=== PATIENT | male | born 1965 | race Caucasian/White ===

== ENCOUNTER → 2017-08-22 16:53 | Outpatient (CLI) | payer OTHER | END | disposition home or self-care (01) | LOC: D.MRI 16:53 | DX: M23.8X2 Other internal derangements of left knee (principal) ==

== ENCOUNTER → 2017-09-08 17:21 | Outpatient (CLI) | payer OTHER | END | disposition home or self-care (01) | LOC: D.MRI 17:21 | DX: M54.5 Low back pain (principal) ==

== ENCOUNTER 2019-05-15 11:12 | Inpatient (IN) | payer OTHER ==
[~2019-05-15] VITALS: Ht 180.3 cm; Wt 121.8 kg
--- NOTE | ~2019-05-15 | HEMODYNAMI ---
PATIENT:TORY CLANCY MEDICAL RECORD: [id number] : 61 LOCATION:[facility] [id number] ADMISSION DATE: 05/15/19 Generatedon:05/16/201910:28 Patient name: TORY CLANCY Patient #: [id number] SSN: DO B: 1965 Date of study: 05/16/2019 Page: Of Hemodynamic Procedure Report Patient Data Patient Demographics Procedure consent was obtained First Name: TORY Gender: Male Last Name: JULIETH : 1965 Middle Initial: HEATHER Age: 54 year(s) Patient #: [id number] Race: Unknown Additional ID: [id number] Contact details [address]: [address] [place] [address] State: [place] City: [place] Zip code: [address] Past Medical History Allergies Allergen Reaction Date Comments Reported Penicillins 05/16/2019 Admission Admission Data Admission Date: 05/15/2019 Admission Time: 13:46 Admit Source: Other Insurance Payor: Private Room #: D.[id number] health insurance Height (in.): 70.47 BSA: 2.4 (m2) Height (cm.): 179 BMI: 39.01 (kg/m2) Weight (lbs.): 275.58 Weight (kg.): 125 Current Diagnosis Diagnosis Description Unstable angina Lab Results Lab Result Date: 05/16/2019 Lab Result Time: 0:00 Biochemistry Name Units Result Min Max Creatinine mg/dl 1.1 --(--*-)-- 0.6 1.3 eGFR ml/min 73.03579 *-(----)-- 90 120 NONAFRICAN CBC Name Units Result Min Max Hematocrit % 53 --(---*)-- 42 54 Hemoglobin g/dl 17.1 --(---*)-- 13.5 17.5 Procedure Procedure Types Cath Procedure Diagnostic Procedure LHC LH w/Coronaries Sedation Charges Moderate Sedation up to 15 minutes Procedure Description Procedure Date Procedure Date: 05/16/2019 Procedure Start Time: 10:07 Procedure End Time: 10:26 Procedure Staff Name Function Garfield Willoughby MD Performing Physician Lena Hernandez RT Monitor Lise Holm RT Scrub Tyler Sellers RN Nurse Procedure Data Cath Procedure Fluoroscopy Diagnostic fluoroscopy Total fluoroscopy Time: 4.7 time: 4.7 min min Diagnostic fluoroscopy Total fluoroscopy dose: dose: 1478 mGy 1478 mGy Contrast Material Contrast Material Type Amount (ml) Isovue 300 91 Entry Location Entry Primary Successful Side Size Upsize Upsize Entry Closure Kaufman ccessful Closure Location (Fr) 1 (Fr) 2 (Fr) Remarks Device Remarks Radial Right 6 Fr Mechanical artery Short Compression Estimated blood loss: 10 ml Diagnostic catheters Device Type Used For End Catheter Placement DIAGNOSTIC Nando 110cm Procedure 5Fr catheter (007024) DIAGNOSTIC [place] 110cm 5 Procedure Fr catheter (649186) Procedure Complications No complications Procedure Medications Medication Administration Route Dosage Oxygen etCO2 Nasal cannula 4 l/min Lidocaine 2% added to field 20 Heparin Flush Bag added to field 2 bags (1000units/500ml NS) 0.9% NaCl I.V. 100 ml/hr Radial Cocktail I.A. 1 syringe (Verapamil 2mg/Nitro 400mcg/Heparin 1500units) Versed I.V. 1 mg Fentanyl I.V. 50 mcg Versed I.V. 1 mg Fentanyl I.V. 50 mcg Oxygen 8 l/min Hemodynamics Rest BSA: 2.4 (m2) HGB: 17.1 (g/dl) O2 Consumption: Estimated: 292.63 (ml/min) O2 Con sumption indexed: Estimated:121.93 (ml/min/m) Heart Rate: 80 (bpm) Pressure Samples Time Site Value (mmHg) Purpose Heart Use Rate(bpm) 10:09 LV 149/0,22 Snapshot 65 10:10 AO 136/80(93) Pullback 81 10:10 LV 146/3,18 Pullback 81 Gradients Valve Time Site 1 Site 2 Mean SEP/DFP Peak To Heart Use (mmHg) (sec/min) Peak Rate (mmHg) (bpm) Aortic 10:10 LV AO 12 6 10 81 146/3,18 136/80(93) Calculations Valve P-P Mean Valve Index Valve Source Name Gradient Area Flow (cm2) Aortic 10 12 10 12 Snapshots Pre Cath Intra NCS Post Cath Vital Signs Time Heart Resp SPO2 etCO2 NIBP (mmHg) Rhythm Pain Sedation Rate (ipm) (%) (mmHg) Status Level (bpm) 9:50:44 77 22 89 39.6 152/85(104) NSR 0 (11) 10(A) , No pain 9:55:06 83 25 90 39.5 144/87(121) NSR 0 (11) 10(A) , No pain 9:59:32 76 19 87 44 142/85(106) NSR 0 (11) 10(A) , No pain 10:03:55 71 18 93 47 144/88(117) NSR 0 (11) 10(A) , No pain 10:08:19 76 16 93 44.8 142/81(99) NSR 0 (11) 10(A) , No pain 10:12:29 75 13 93 17.1 115/72(97) NSR 0 (11) 10(A) , No pain 10:17:36 89 16 95 52.2 124/86(102) NSR 0 (11) 10(A) , No pain 10:21:54 90 19 92 45.5 135/76(101) NSR 0 (11) 10(A) , No pain 10:26:18 84 17 95 47.7 126/76(101) NSR 0 (11) 10(A) , No pain Medications Time Medication Route Dose Verified Delivered Reason Notes Effectiveness by by 9:49:35 Oxygen etCO2 4 l/min Garfield Buffie used for Nasal Case Sellers RN procedure cannula 9:49:41 Lidocaine 2% added 20ml Garfield Garfield for local to vial Case Willoughby MD anesthetic field 9:49:47 Heparin Flush added 2 bags Garfield Garfield used for Bag to Case Willoughby MD procedure (1000units/500ml field NS) 9:49:56 0.9% NaCl I.V. 100 Garfield Buffie Per ml/hr Case Sellers RN physician 9:59:52 Oxygen simple 8 l/min Garfield Buffie used for mask Case Sellers RN procedure 10:07:09 Versed I.V. 1 mg Garfield Buffie for sedation Case Sellers RN 10:07:15 Fentanyl I.V. 50 mcg Garfield Buffie for sedation Case Sellers RN 10:08:32 Radial Cocktail I.A. 1 Garfield Garfield for (Verapamil syringe Case Willoughby MD vasodilation 2mg/Nitro 400mcg/Heparin 1500units) 10:11:13 Versed I.V. 1 mg Garfield Vitoie for sedation Case Sellers RN 10:11:18 Fentanyl I.V. 50 mcg Garfield Scott for sedation Case Sellers lead manufacturing engineer Log Time Note 9:30:30 Tyler Sellers RN sent for patient. Start room use. 9:40:21 Informed consent obtained and on chart 9:42:16 Patient allergic to Penicillins 9:42:20 Admit Source: Other 9:42:29 Insurance Payor : Private health insurance 9:42:37 Patient Weight : 275.58 lbs 9:42:42 Patient Height : 70.47 inches 9:42:51 Current Diagnosis : Unstable angina 9:43:31 Lab Result : eGFR NONAFRICAN 73.55266 ml/min 9:43:31 Lab Result : Creatinine 1.1 mg/dl 9:43:31 Lab Result : Hematocrit 53 % 9:43:31 Lab Result : Hemoglobin 17.1 g/dl 9:44:23 ACC Patient presents with Unstable Angina CCS Anginal Class 3--Marked limitation of physical activity, angina occurs with ordinary activity.. 9:44:26 Procedure Status Urgent Heart Cath (IP). 9:44:44 Time tracking: Regular hours (M-F 7:00 - 5:00) 9:44:48 Plan of Care:Hemodynamics will remain stable., Cardiac rhythm will remain stable., Comfort level will be maintained., Respiratory function will remain adequate., Patient/ family verbilizes understanding of procedure., Procedure tolerated without complication., Recovers from procedure without complications.. 9:44:54 Patient received from Med II to CCL 2 Alert and oriented. Tansferred to table in Supine position. 9:45:01 Warm blankets applied, and el hugger turned on for patient comfort. 9:45:01 Correct patient and procedure confirmed by team. 9:45:01 ECG and BP/O2 sat monitors applied to patient. 9:45:49 Full Disclosure recording started 9:45:52 H&P Date Dictated: 05/16/2019 Within 30 days and on chart.. 9:45:54 Pre-procedure instructions explained to patient. 9:45:54 Pre-op teaching completed and patient verbalized understanding. 9:45:57 Family in patients room. 9:46:03 Patient NPO since Midnight. 9:46:05 Is the patient allergic to Iodine/contrast media? No. 9:46:07 Was the patient premedicated? N/A 9:46:12 Is patient on blood thinner?No 9:46:16 ACC The patient was administered the following blood thiners within the last 24 hours: None 9:46:18 If diabetic: On Metformin? Yes 9:46:23 Patient diabetic? Yes. 9:46:39 If on Metformin: Last Dose? 05/15/2019 9:46:54 Previous problem with sedation/anesthesia? No ? 9:47:00 Snore? Yes 9:47:02 Sleep apnea? No 9:47:03 Deviated septum? No 9:47:04 Opens mouth fully? Yes 9:47:06 Sticks out tongue? Yes 9:47:12 Airway obstruction? Yes bronchitis 9:47:27 Dentures? No ? 9:47:36 Pre procedure: right radial pulse 2+ Normal; easily identifiable; not easily obliterated 9:47:39 Pre procedure: right dorsailis pedis pulse 1+ Palpable, but thready & weak; easily obliterated 9:47:42 Modified Jae's test Radial < 7 seconds 9:47:44 Patient pain scale 0/10 ?. 9:47:57 IV patent on arrival in left wrist with 0.9% NaCl at KVO. 9:48:04 Stress Test: no; N/A ? 9:48:08 Right Radial & Right Groin area was prepped with chlora-prep and draped in sterile fashion 9:48:10 Alarms reviewed by R. N. 9:48:10 Sharps counted by scrub and verified by R.N. 9:49:22 Vital chart was started 9:49:26 Risk of Mortality: 0.1 9:49:27 Risk of blood transfusion: 0.1 9:49:31 Risk of STACY: 0.1 9:49:35 Oxygen 4 l/min etCO2 Nasal cannula was administered by Tyler Sellers RN; used for procedure; Verbal order read back and verified. 9:49:41 Lidocaine 2% 20ml vial added to field was administered by Garfield Willoughby MD; for local anesthetic; Verbal order read back and verified. 9:49:47 Heparin Flush Bag (1000units/500ml NS) 2 bags added to field was administered by Garfield Willoughby MD; used for procedure; Verbal order read back and verified. 9:49:56 0.9% NaCl 100 ml/hr I.V. was administered by Tyler Sellers RN; Per physician; Verbal order read back and verified. 9:49:58 Pt. transported to wharf labourer with sob, states bronchitis x 4 weeks with cough. Pt with room oxygen saturation of 87%. 9:52:08 Baseline sample Acquired. 9:53:25 Physician paged 9:59:52 Oxygen 8 l/min simple mask was administered by Tyler Sellers RN; used for procedure; Verbal order read back and verified. 10:06:31 Physician arrived 10:06:31 --------ALL STOP TIME OUT------ 10:06:32 Final Timeout: patient, procedure, and site verified with staff and physician. All members of the team are in agreement. 10:06:37 Right Radial & Right Groin site verified by team. 10:06:41 Fire Safety Assessment: A--An alcohol-based skin anteseptic being used preoperatively., C--Open oxygen or nitrous oxide is being used., D--An ESU, laser, or fiber-optic light is being used. 10:06:45 Physical assessment completed. ASA score P 3 - A patient with severe systemic disease as per Garfield Willoughby MD. 10:06:49 2) 60-89 Mildly reduced kidney function, and other findings (as for stage 1) point to kidney disease. 10:06:53 Maximum allowable contrast dose (3.7 X eGFR X 0.75)203 ml. 10:06:57 Sedation plan: IV Moderate Sedation Medication:Versed, Fentanyl 10:07:06 Use device set Radial Dx or PCI 10:07:08 Procedure started. 10:07:09 Versed 1 mg I.V. was administered by Tyler Sellers RN; for sedation; Verbal order read back and verified. 10:07:15 Fentanyl 50 mcg I.V. was administered by Tyler Sellers RN; for sedation; Verbal order read back and verified. 10:07:45 Local anesthetic to right radial artery with Lidocaine 2% by Garfield Willoughby MD.INITIAL ACCESS ONLY 10:07:55 A 6 Fr Short sheath was inserted into the Right Radial artery 10:08:02 ACIST Syringe (55579) opened to sterile field. 10:08:03 Medline Cath Pack ([id number]) opened to sterile field. 10:08:03 Bag Decanter (2002S) opened to sterile field. 10:08:04 ACIST Hand Control (19105) opened to sterile field. 10:08:04 ACIST Manifold (47816) opened to sterile field. 10:08:08 MBrace Wrist Support ([id number]) opened to sterile field. 10:08:10 NEEDLE Cook 21G 4cm Radial (G86400) opened to sterile field. 10:08:14 SHEATH 6FR RAIN (7704302) opened to sterile field. 10:08:17 EMERALD Guide Wire (652-875) opened to sterile field. 10:08:32 Radial Cocktail (Verapamil 2mg/Nitro 400mcg/Heparin 1500units) 1 syringe I.A. was administered by Garfield Willoughby MD; for vasodilation; Verbal order read back and verified. 10:08:32 A DIAGNOSTIC Nando 110cm 5Fr catheter (314521) was advanced over the wire and used for Procedure. 10:08:38 J wire advanced. 10:09:24 LV angiography performed. 10:09:55 LV gram done using NGUYỄN 10:10:12 EF : 45 % 10:11:13 Versed 1 mg I.V. was administered by Tyler Sellers RN; for sedation; Verbal order read back and verified. 10:11:18 Fentanyl 50 mcg I.V. was administered by Tyler Sellers RN; for sedation; Verbal order read back and verified. 10:12:02 RCA angiography performed. 10:12:40 LCA angiography performed. 10:17:18 Catheter exchanged over wire. 10:17:26 A DIAGNOSTIC [place] 110cm 5 Fr catheter (645065) was advanced over the wire and used for Procedure. 10:23:16 LCA angiography performed. 10:23:18 Catheter removed. 10:23:38 ZEPHYR REGULAR TR BAND (091414) opened to sterile field. 10:24:09 Sheath removed intact; hemostasis achieved with Mechanical Compression to the Right Radial artery. 10:24:12 Procedure ended.(Physican Out) 10:24:24 Fluoroscopy time 04.70 minutes. 10:24:29 Fluoroscopy dose: 1478 mGy 10:24:29 Flurop Dose total: 1478 10:24:34 Dose Area Product 90582 mGy/cm. 10:24:42 Contrast amount:Isovue 300 91ml. 10:24:45 Maximum allowable dose exceeded? No. 10:24:46 Sharps counted by scrub and verified by R.N. 10:24:49 Polaris band inflated with 10cc of air. 10:24:50 Insertion/operative site no bleeding no hematoma. 10:24:52 Post Procedure Pulses reassessed and unchanged 10:24:59 Post-procedure physical assessment completed. ASA score P 3 - A patient with severe systemic disease as per Garfield Willoughby MD. 10:25:02 Post procedure rhythm: unchanged. 10:25:05 Estimated blood loss: 10 ml 10:25:07 Post procedure instruction explained to patient.Patient verbalizes understanding. 10:25:47 Procedure type changed to Cath procedure, Diagnostic procedure, LHC, [facility] w/Coronaries, Sedation Charges, Moderate Sedation up to 15 minutes 10:25:48 Procedure and supply charges have been captured, reviewed, submitted and are correct. 10:26:06 Procedure Complication : No complications 10:26:08 Vital chart was stopped 10:26:12 [facility] Findings: MVD- MD will discuss options w/ pt 10:26:15 Operative report dictated upon procedure completion. 10:26:16 See physician's report for complete and final results. 10:26:25 Report given to [facility]. 10:26:28 Patient transfered to [facility] with Bed. 10:26:30 Procedure ended. 10:26:30 Full Disclosure recording stopped 10:26:36 End room use (Document Last) 10:26:56 End room use (Document Last) 10:27:18 End room use (Document Last) 10:27:52 End room use (Document Last) Device Usage Item Name Manufacture Quantity Catalog Hospital Part Current Minima l Lot# / Number Charge Number Stock Stock Serial# Code ACIST Acist 1 43042 995412 669251 639144 20 Syringe Network (26015) [employer]are Inc Medline Medline 1 [id number] 396379 35559 334792 5 Cath Pack ([id number]) Bag Microtek 1 439211 54573 855164 5 Decanter Medical Inc. (2002S) ACIST Hand Acist 1 42816 112570 534196 525577 5 Control Medical (57779) Systems Inc ACIST Acist 1 10016 067881 108096 252874 5 Manifold Medical (69863) Systems Inc MBrace Advanced 1 140-0250-00 123788 99671 927650 5 Wrist Vascular Support Dynamics ([id number]) NEEDLE Cook Cook Medical 1 J56236 565935 709517 366095 5 21G 4cm Radial (M79664) SHEATH 6FR Cardinal 1 [id number] 028983 6144579 602539 5 RAIN Health (7173416) EMERALD Cardinal 1 485-555 271164 566456 849087 5 Guide Wire Health (812-094) DIAGNOSTIC Terumo 1 40-5503 523087 634594 236463 5 Nando 110cm 5Fr catheter (361016) DIAGNOSTIC Terumo 1 40-2553 427595 269868 562534 5 [place] 110cm 5 Fr catheter (328699) ZEPHYR Cardinal 1 853308 027762 6489235 886085 5 REGULAR TR Health BAND (436596) Signature Audit [place] Stage Time Signature Unsigned Intra-Procedure 05/16/2019 Lena Hernandez 10:27:18 AM RT(R) Intra-Procedure 05/16/2019 Tyler Sellers RN 10:27:52 AM Intra-Procedure 05/16/2019 Garfield Willoughby MD 10:28:12 AM Signatures Performing Physician : Signature : Garfield Willoughby MD Date : Time : Monitor : Lena Hernandez Signature : RT Date : Time : Nurse : Tyler eSllers RN Signature : Date : Time : [facility] [address] [place] [address]
[2019-05-15] MEDS ORDERED: BACTRIM 400-801 TAB PO (11:22)
[2019-05-15] MEDS ORDERED: LOVASTATIN20 MG PO (11:22)
[2019-05-15] MEDS ORDERED: LISINOPRIL20 MG PO (11:22)
[2019-05-15] MEDS ORDERED: MOBIC7.5 MG PO (11:23)
[2019-05-15] MEDS ORDERED: HCTZ25 MG PO (11:23)
[2019-05-15] MEDS ORDERED: NEURONTIN600 MG PO (11:23)
[2019-05-15] MEDS ORDERED: ROPINIROLE HCL1 MG PO (11:23)
[2019-05-15] MEDS ORDERED: CLARITIN 10 MG10 MG PO (11:24)
[2019-05-15] MEDS ORDERED: ZANAFLEX4 MG PO (11:24)
[2019-05-15] MEDS ORDERED: OMEGA-3100 MG PO (11:24)
[2019-05-15] MEDS ORDERED: K-DUR20 MEQ PO (11:24)
[2019-05-15] MEDS ORDERED: JARDIANCE10 MG PO (11:24)
[2019-05-15] MEDS ORDERED: MAG-OXIDE400 MG PO (11:25)
[2019-05-15 11:51] LABS: CALC OSMOLALITY 271 mosm/kg (275-300); CALCIUM 9.5 mg/dL (8.5-10.1); CARBON DIOXIDE 27.7 mmol/L (21.0-32.0); CHLORIDE - SERUM 100 mmol/L (98-107); CREATININE - SERUM 1.1 mg/dL (0.6-1.3); GLUCOSE 124 mg/dL (74-106); POTASSIUM - SERUM 4.8 mmol/L (3.5-5.1); SODIUM 135 mmol/L (136-145); UREA NITROGEN 15 mg/dL (7-18); eGFR NON AFRICAN AMERICAN 73 mL/min (90-120)
[2019-05-15 11:52] LABS: HEMATOCRIT 55.3 % (42.0-54.0); HEMOGLOBIN 17.6 g/dL (13.5-17.5); LYMPHOCYTES 20.9 % (15-50); MCH 27.1 pg (26.0-34.0); MCHC 31.8 g/dL (31.0-37.0); MCV 85.1 fL (80.0-100.0); MEAN PLATELET VOLUME 10.6 fL (7.4-10.4); NEUTROPHILS 67.9 % (40-80); PLATELET COUNT 177 10x3/uL (130-400); RDW 14.7 % (11.5-14.5); WBC 5.3 10x3/uL (4.8-10.8)
[2019-05-15 12:00] VITALS: BP 140/66
[2019-05-15 12:06] LABS: ALBUMIN 3.9 g/dL (3.4-5.0); ALKALINE PHOSPHATASE 66 U/L (30-120); ALT (SGPT) 50 U/L (10-68); BILIRUBIN - TOTAL 0.52 mg/dL (0.2-1.3); CKMB 6.2 U/L (0.0-3.6); CREATINE KINASE 526 UL (21-232); MAGNESIUM - SERUM 2.2 mg/dL (1.8-2.4); PROTEIN - SERUM 7.4 g/dL (6.4-8.2)
[2019-05-15 12:08] LABS: INR 1.02 (0.85-1.17); PROTIME 12.7 SECONDS (11.6-15.0)
[2019-05-15 12:09] LABS: TROPONIN-I < 0.017 ng/mL (0.000-0.060)
[2019-05-15 12:11] LABS: APTT 26.7 SECONDS (22.8-39.4)
[2019-05-15 13:00] VITALS: BP 139/83
[2019-05-15 14:00] VITALS: BP 131/78
[2019-05-15 14:39] LABS: CKMB 5.5 U/L (0.0-3.6); CREATINE KINASE 445 UL (21-232)
[2019-05-15 14:40] LABS: TROPONIN-I < 0.017 ng/mL (0.000-0.060)
[2019-05-15 15:00] VITALS: BP 122/74
--- NOTE | 2019-05-15 15:32 | NUR ---
LEVAQUIN INFUSION COMPLETE AT THIS TIME.
[2019-05-15 16:27] LABS: CHOL - HDL RATIO 5.7 ratio (2.3-4.9)
--- NOTE | 2019-05-15 16:30 | NUR ---
PT ARRIVED TO FLOOR AWAKE ALERT AND ORIENTED SITTING UP IN BED RESTING QUIETLY WITH AT BEDSIDE. PT WAS ADMITTED FROM THE ER. WILL BEGIN ADMISSION WORKUP. PT DENIES ANY CURRENT CHEST PAIN. CL IN REACH. WILL CPOC.
--- NOTE | 2019-05-15 18:21 | NUR ---
PT WAS ABLE TO EAT DINNER AND THEN WILL BE NPO AFTER DINNER FOR PLANNED HEART CATH TOMORROW. CONSENTS OBTAINED AND PLACED IN CHART. PT VERBALIZED UNDERSTANDING. NO CURRENT NEEDS AT THIS TIME. AT BEDSIDE. WILL CTM.
--- NOTE | 2019-05-15 19:42 | NUR ---
RECEIVED BEDSIDE REPORT. PATIENT IS ALERT AND ORIENTED, RESTING COMFORTABLY IN BED. RESPIRATIONS ARE EVEN AND UNLABORED. NO S/S OF DISTRESS. NO C/O PAIN. CALL LIGHT WITHIN REACH. WILL CPOC.
[2019-05-15 21:17] LABS: CKMB 2.9 U/L (0.0-3.6); CREATINE KINASE 359 UL (21-232); TROPONIN-I < 0.017 ng/mL (0.000-0.060)
[2019-05-16 02:44] LABS: BASOPHILS 0.3 % (0-2); EOSINOPHILS 2.3 % (0-7); HEMOGLOBIN 17.1 g/dL (13.5-17.5); IMMATURE GRANULOCYTES 0.3 % (0-5); LYMPHOCYTES 23.4 % (15-50); MCH 27.7 pg (26.0-34.0); MCHC 32.3 g/dL (31.0-37.0); MCV 85.8 fL (80.0-100.0); MEAN PLATELET VOLUME 10.7 fL (7.4-10.4); MONOCYTES 8.3 % (2-11); NEUTROPHILS 65.4 % (40-80); PLATELET COUNT 165 10x3/uL (130-400); RBC 6.18 10x6/uL (4.20-6.10); RDW 14.8 % (11.5-14.5)
[2019-05-16 03:04] LABS: CALC OSMOLALITY 272 mosm/kg (275-300); CARBON DIOXIDE 28.9 mmol/L (21.0-32.0); CHLORIDE - SERUM 98 mmol/L (98-107); CKMB 3.7 U/L (0.0-3.6); CREATINE KINASE 312 UL (21-232); CREATININE - SERUM 1.1 mg/dL (0.6-1.3); GLUCOSE 154 mg/dL (74-106); PHOSPHOROUS 3.9 mg/dL (2.5-4.9); POTASSIUM - SERUM 4.2 mmol/L (3.5-5.1); SODIUM 134 mmol/L (136-145); UREA NITROGEN 17 mg/dL (7-18); eGFR NON AFRICAN AMERICAN 73 mL/min (90-120)
[2019-05-16 03:05] LABS: TROPONIN-I < 0.017 ng/mL (0.000-0.060)
--- NOTE | 2019-05-16 07:57 | NUR ---
ASSESSMENT DONE. DENIES NEEDS
--- NOTE | 2019-05-16 11:11 | NUR ---
I have reviewed this patient and I concur with the Shift Assessment completed by the Licensed Practical Nurse today this shift.
[2019-05-16 16:19] LABS: BASOPHILS 0.5 % (0-2); EOSINOPHILS 1.5 % (0-7); HEMATOCRIT 55.3 % (42.0-54.0); HEMOGLOBIN 17.9 g/dL (13.5-17.5); IMMATURE GRANULOCYTES 0.5 % (0-5); LYMPHOCYTES 18.6 % (15-50); MCH 27.9 pg (26.0-34.0); MCHC 32.4 g/dL (31.0-37.0); MCV 86.1 fL (80.0-100.0); MEAN PLATELET VOLUME 11.2 fL (7.4-10.4); MONOCYTES 9.3 % (2-11); NEUTROPHILS 69.6 % (40-80); PLATELET COUNT 198 10x3/uL (130-400); RBC 6.42 10x6/uL (4.20-6.10); RDW 14.8 % (11.5-14.5); WBC 6.1 10x3/uL (4.8-10.8)
[2019-05-16 16:47] LABS: BILIRUBIN - TOTAL 0.5 mg/dL (0.2-1.3); CALCIUM 9.1 mg/dL (8.5-10.1); CARBON DIOXIDE 29.4 mmol/L (21.0-32.0); CREATININE - SERUM 1.3 mg/dL (0.6-1.3); PHOSPHOROUS 3.4 mg/dL (2.5-4.9); POTASSIUM - SERUM 4.4 mmol/L (3.5-5.1); T4 THYROXIN - FREE 1.26 ng/dL (0.76-1.46); THYROID STIMULATING HORMONE 1.31 uIU/mL (0.36-3.74); URIC ACID 6.9 mg/dL (2.6-7.2)
[2019-05-16 17:18] LABS: APTT 47.8 SECONDS (22.8-39.4); INR 1.4 (0.85-1.17)
[2019-05-16 19:20] LABS: BILIRUBIN NEGATIVE (NEGATIVE); GLUCOSE 1000 mg/dL (NEGATIVE); KETONE NEGATIVE (NEGATIVE); NITRITE NEGATIVE (NEGATIVE); UROBILINOGEN NORMAL (NORMAL)
--- NOTE | 2019-05-16 22:37 | NUR ---
PATIENT STATED HE WAS HAVING PAIN AROUND HIS SHOULDER. PATIENT SAID THAT HE TAKES NORCO AT HOME. NOTIFIED EPIFANIO MEYER APRN. NORCO 5/325 PO Q 6 HRS ORDERED.
[2019-05-17] VITALS (54 sets, daily range): BP systolic 86–129; BP diastolic 50–78; Ht 180.3 cm; Wt 121.8 kg
[2019-05-17 04:44] LABS: BASOPHILS 0.3 % (0-2); EOSINOPHILS 2.5 % (0-7); HEMATOCRIT 53.4 % (42.0-54.0); IMMATURE GRANULOCYTES 0.5 % (0-5); LYMPHOCYTES 20.9 % (15-50); MCH 27.5 pg (26.0-34.0); MCHC 31.8 g/dL (31.0-37.0); MCV 86.4 fL (80.0-100.0); MEAN PLATELET VOLUME 10.9 fL (7.4-10.4); MONOCYTES 12.1 % (2-11); NEUTROPHILS 63.7 % (40-80); PLATELET COUNT 167 10x3/uL (130-400); RBC 6.18 10x6/uL (4.20-6.10)
[2019-05-17 04:58] LABS: CALCIUM 8.6 mg/dL (8.5-10.1); CARBON DIOXIDE 28.5 mmol/L (21.0-32.0); CREATININE - SERUM 1.3 mg/dL (0.6-1.3); MAGNESIUM - SERUM 2.3 mg/dL (1.8-2.4); POTASSIUM - SERUM 4.5 mmol/L (3.5-5.1)
[2019-05-17 05:01] LABS: PHOSPHOROUS 4.4 mg/dL (2.5-4.9)
--- NOTE | 2019-05-17 10:15 | NUR ---
RECEIVED PATIENT FROM OR S/P CABG X 1, PATIENT SEDATED, PUPILS FIXED AT 3 MM, ON VENT, SETTINGS TV - 550, PEEP - 8, FIO2 - 100%, A/C - 14, SPO2 93%, BBS - CLEAR AND EQUAL, BOWEL SOUNDS ABSENT, JOSE CATH IN PLACE WITH 472 ML OF CLEAR YELLOW UOP NOTED, CHEST TUBE X 2, NO AIR LEAK PRESENT, PLACED TO 20 CM WALL SUCTION, BETH DRAIN NOTED WITH BLOODY OUTPUT NOTED. MIDLINE INCISION WITH DRESSING C/D/I AND SUBSTERNAL DRESSING C/D/I, SCDS AND ESTUARDO HOSE IN PLACE. IV 20 GA TO LEFT FA NSL, CVL TO RIGHT IJ WITH PLASMOLYTE AT 100 ML/HR. DRESSING C/D/I. CM - SR RATE OF 80 WITH NO ECTOPY NOTED. ART LINE TO RIGHT WRIST, ZEROED AND LEVELED, BP 102/62, CVP LEVELED AND ZEREOED - 9. FSBS - 173 MG/DL. HEAD TO TOE ASSESSMENT COMPLETED.
--- NOTE | 2019-05-17 10:30 | NUR ---
ART LINE PRESSURE 86/50, NEOSYNEPHRINE STARTED AT 0.2 MCG/KG/MIN. FSBS - 172 MG/DL.
--- NOTE | 2019-05-17 10:45 | NUR ---
PATIENT OPENING EYES AND FOLLOWING COMMANDS, NEOSYNEPHRINE DECREASED TO O.1 MCG/KG/MIN BP 118/69. FSBS - 203, INSULIN BOLUS 2 UNITS GIVEN PER ORDER AND INSULIN GTT STARTED PER SLIDING SCALE.
--- NOTE | 2019-05-17 11:00 | NUR ---
BP 97/57, NEOSYNEPHRINE GTT DECREASED TO 0.05 MCG/KG/MIN, INSULIN AT 1 UNIT/HR. PATIENT WITH 128 ML OF CLEAR YELLOW UOP AND EMPTIED 30 ML OF BLOODY DRAINAGE FROM BETH DRAIN. A CT WITH 20 ML OF BLOODY OUTPUT NOTED AND P CT WITH 0 ML OF OUTPUT NOTED. INTERMITTENT AIRLEAK NOTED.
--- NOTE | 2019-05-17 11:01 | NUR ---
INCREASED RR TO 16 AND VT TO 550 PER ABG.
--- NOTE | 2019-05-17 11:15 | NUR ---
NEOSYNEPHRINE GTT DISCONTINUED, BP 112/67, INSULIN AT GTT AT 1 UNIT/HR. PATIENT AWAKE AND FOLLOWING COMMANDS MOVING ALL EXTREMITIES.
[2019-05-17 11:26] LABS: PROTIME 14.1 SECONDS (11.6-15.0)
[2019-05-17 11:30] LABS: APTT 30.1 SECONDS (22.8-39.4); INR 1.09 (0.85-1.17)
--- NOTE | 2019-05-17 11:30 | NUR ---
FSBS - 226 MG/DL, INSULIN GTT INCREASED TO 1.5 UNITS/HR.
--- NOTE | 2019-05-17 11:45 | NUR ---
FSBS - 221, INSULIN GTT INCREASED TO 2.0 UNITS/HR. VSS. CONTINUE TO MONITOR. AT BEDSIDE UPDATED AND QUESTIONS ANSWERED.
--- NOTE | 2019-05-17 12:53 | NUR ---
FSBS - 212 MG/DL, INSULIN GTT INCREASED TO 2.5 UNITS/HR.
--- NOTE | 2019-05-17 13:25 | NUR ---
PATIENT C/O PAIN RATES 10/10 AND NAUSEA GIVEN PRN MORPHINE 2 MG IVP WITH NS FLUSH FOR PAIN AND 4 MG ZOFRAN IVP WITH NS FLUSH FOR NAUSEA.
--- NOTE | 2019-05-17 13:56 | NUR ---
FSBS - 200 MG/DL, NO CHANGES PER SS ON INSULIN. VSS. PATIENT RATES PAIN 5/10 AND NAUSEA IS IMPROVED.
--- NOTE | 2019-05-17 14:03 | NUR ---
RT SPOKE TO DR. CHIN WANTS TO SEDATE PATIENT AND CONTINUE VENT DUE TO PATIENT BEING ON FIO2 100%, WITH SPO2 - 91%, LAST ABG PO2 WAS 62. ON PS OF 12 AND PEEP OF 8. NETO RN WITH DR. HEREDIA PAGED TO ADVISE.
--- NOTE | 2019-05-17 14:52 | NUR ---
SPOKE TO DR. HEREDIA REGARDING PATIENTS VENT SETTINGS AND DR. CHIN WANTING TO SEDATE AND LEAVE ON VENT. ORDERS LASIX 40 MG IVP AND TO CONTINUE ATTEMPTS TO WEAN. ALSO DISCUSSED HR OF 102-104 NO ORDERS RECEIVED FOR HR.
--- NOTE | 2019-05-17 15:19 | NUR ---
REASSESSMENT COMPLETED. VSS. INSULIN GTT AT 2.5 UNITS/HR, FSBS - 198 MG/DL, NO CHANGES PER SS. GALLOP REMAINS ON HEART TONES ASCULTATED. GIVEN 40 MG LASIX IVP PER ORDER. C/O PAIN 08/29 GIVEN 2 MG MORPHINE IVP WITH NS FLUSH. BBS - CLEAR BILATERALLY, BOWEL SOUNDS HYPOACTIVE X 4.
--- NOTE | 2019-05-17 15:57 | NUR ---
DR. HEREDIA AT ROOM UPDATED AND EXAMINES PATIENT. VSS. ORDERS REPEAT CXR.
--- NOTE | 2019-05-17 16:15 | NUR ---
SPUTUM CULTURE OBTAINED BY RT AND REPEAT CXR COMPLETED. DR. HEREDIA STATES OK TO SEDATE PATIENT PER DR. CHIN AND REMAIN ON VENT OVERNIGHT.
--- NOTE | 2019-05-17 16:19 | NUR ---
SPOKE TO DR. CHIN TO REGARDING SEDATION FOR PATIENT ADVISED TO START FENTANYL GTT AT 25 MCG/HR, MAX DOSE OF 100 MCG/HR AND TO START PROPOFL GTT.
--- NOTE | 2019-05-17 17:00 | NUR ---
FSBS - 216 MG/DL, INSULILN GTT INCREASED TO 3 UNTS/HR PER SLIDING SCALE, PATIENT SLEEPY, EASILY AROUSED TO VOICE, FOLLOWS COMMANDS, RR 22, VENT IS SET A/C RATE 18, PROPOFOL GTT INCREASED TO 10 MCG/KG/MIN AND FENTANYL GTT INCREASED TO 50 MCG/HR, PATIENT RATES PAIN 2/10.
--- NOTE | 2019-05-17 17:53 | NUR ---
PATIENT RESTING QUIETLY, VSS. EASILY AROUSED BY VOICE AND DRIFTS BACK TO SLEEP. FSBS - 179 MG/DL, NO CHANGES TO INSULIN GTT PER SS.
--- NOTE | 2019-05-17 19:00 | NUR ---
REPORT RECEIVED. RECEIVED PATIENT IN BED , SEDATED/INTUBATED. 7.0 ETT INTACT/SECURE/PATENT CONNECTED TO MECHANICAL VENT AT ORDERED SETTINGS. SUBSTERNAL CHEST TUBES INTACT/SECURE/PATENT CONNECTED TO 20 CM SUCTION DRAINING BLOODY DRAINAGE INTO COLLECTION CHAMBER. ASSESSMENT COMPLETED PER FLOW SHEET WITH NO ACUTE DISTRESS OBSERVED. MONITORS CONNECTED TO PATIENT WITH ALARMS SET. NORMAL SINUS RHYTHM ON MONITOR.
--- NOTE | 2019-05-17 21:00 | NUR ---
RESTING WITH EYES CLOSED, SEDATED/INTUBATED. ROUSES TO VOICE, FOLLOWS COMMANDS. DENIES PAIN. NO DISTRESS OBSERVED. VSS
--- NOTE | 2019-05-17 23:00 | NUR ---
REASSESSMENT COMPLETED PER FLOW SHEET WITH NO ACUTE DISTRESS OBSERVED. VSS. SEDATED/INTUBATED. ETT SECURE/INTACT/PATENT AND [facility] AT ORDERED SETTINGS. CT INTACT/SECURE/PATENT CONNECTED TO 20 CM SX DRAINING SMALL AMOUNT OF BLOODY DRAINAGE INTO COLLECTION CHAMBER. ROUSES TO VOICE, FOLLOWS COMMANDS. DENIES PAIN.
[2019-05-18] VITALS (68 sets, daily range): BP systolic 84–130; BP diastolic 55–96
--- NOTE | 2019-05-18 01:00 | NUR ---
SEDATED/INTUBATED. NO DISTRESS OBSERVED. VSS
--- NOTE | 2019-05-18 03:00 | NUR ---
REASSESSMENT COMPLETED PER FLOW SHEET WITH NO ACUTE DISTRESS OBSERVED. VSS.
[2019-05-18 05:52] LABS: BASOPHILS 0.2 % (0-2); EOSINOPHILS 0.2 % (0-7); HEMATOCRIT 50.9 % (42.0-54.0); HEMOGLOBIN 16.2 g/dL (13.5-17.5); IMMATURE GRANULOCYTES 0.5 % (0-5); LYMPHOCYTES 6.5 % (15-50); MCH 27.9 pg (26.0-34.0); MCHC 31.8 g/dL (31.0-37.0); MCV 87.8 fL (80.0-100.0); MEAN PLATELET VOLUME 10.4 fL (7.4-10.4); MONOCYTES 11.2 % (2-11); NEUTROPHILS 81.4 % (40-80); RDW 15.4 % (11.5-14.5)
[2019-05-18 06:01] LABS: PLATELET COUNT 207 10x3/uL (130-400)
[2019-05-18 06:16] LABS: ALBUMIN 3.2 g/dL (3.4-5.0); ALKALINE PHOSPHATASE 54 U/L (30-120); BILIRUBIN - TOTAL 0.98 mg/dL (0.2-1.3); CALC OSMOLALITY 276 mosm/kg (275-300); CALCIUM 7.4 mg/dL (8.5-10.1); CHLORIDE - SERUM 101 mmol/L (98-107); GLUCOSE 172 mg/dL (74-106); MAGNESIUM - SERUM 2.3 mg/dL (1.8-2.4); POTASSIUM - SERUM 4.8 mmol/L (3.5-5.1); PROTEIN - SERUM 6.7 g/dL (6.4-8.2); SODIUM 135 mmol/L (136-145); UREA NITROGEN 20 mg/dL (7-18); eGFR NON AFRICAN AMERICAN 82 mL/min (90-120)
[2019-05-18 06:18] LABS: ALT (SGPT) 30 U/L (10-68)
--- NOTE | 2019-05-18 19:00 | NUR ---
TURNED AND REPOSITIONED FOR COMFORT. HENRY WELL. ORAL CARE GIVEN.
--- NOTE | 2019-05-18 19:00 | NUR ---
REPORT RECEIVED. RECEIVED PATIENT IN BED, SEDATED/INTUBATED. 7.0 ETT INTACT/SECURE/PATENT CONNECTED TO MECHANICAL VENT AT ORDERED SETTINGS. CT INTACT/SECURE/PATENT TO 20 CM SUCTION DRAINING SMALL AMOUNT OF BLOODY FLUID INTO COLLECTION CHAMBER. MONITORS CONNECTED TO PATIENT WITH ALARMS SET. VSS. ASSESSMENT COMPLETED PER FLOW SHEET WITH NO ACUTE DISTRESS OBSERVED.
--- NOTE | 2019-05-18 21:00 | NUR ---
RHYTHM CHANGE OBSERVED ON ECG FROM SINUS TACH TO A FLUTTER. DR HEREDIA NOTIFED. NEW ORDERS RECEIVED.
--- NOTE | 2019-05-18 21:33 | NUR ---
DR. HEREDIA INFORMED OF ABG RESULTS. NO NEW ORDERS
--- NOTE | 2019-05-18 23:00 | NUR ---
REASSESSMENT COMPLETED PER FLOW SHEET WITH NO ACUTE DISTRESS OBSERVED. VSS. TURNED AND REPOSITIONED FOR COMFORT. ORAL CARE PERFORMED.
[2019-05-19] VITALS (27 sets, daily range): BP systolic 95–116; BP diastolic 53–70
--- NOTE | 2019-05-19 03:15 | NUR ---
TURNED AND REPOSITIONED FOR COMFORT. REASSESSMENT COMPLETED PER FLOW SHEET WITH NO ACUTE DISTRESS OBSERVED. VSS. ORAL CARE PERFORMED HENRY WELL.
--- NOTE | 2019-05-19 05:00 | NUR ---
TURNED AND REPOSITIONED. ORAL CARE GIVE. VSS.
[2019-05-19 06:12] LABS: BASOPHILS 0.3 % (0-2); EOSINOPHILS 0.2 % (0-7); HEMATOCRIT 46.7 % (42.0-54.0); HEMOGLOBIN 14.6 g/dL (13.5-17.5); IMMATURE GRANULOCYTES 0.3 % (0-5); LYMPHOCYTES 10.6 % (15-50); MCH 27.7 pg (26.0-34.0); MCHC 31.3 g/dL (31.0-37.0); MCV 88.6 fL (80.0-100.0); MEAN PLATELET VOLUME 10.6 fL (7.4-10.4); MONOCYTES 9.9 % (2-11); NEUTROPHILS 78.7 % (40-80); PLATELET COUNT 176 10x3/uL (130-400); RBC 5.27 10x6/uL (4.20-6.10); RDW 15.4 % (11.5-14.5)
[2019-05-19 06:22] LABS: ALBUMIN 2.7 g/dL (3.4-5.0); BILIRUBIN - TOTAL 0.74 mg/dL (0.2-1.3); CALCIUM 7.5 mg/dL (8.5-10.1); CARBON DIOXIDE 29.5 mmol/L (21.0-32.0); CREATININE - SERUM 1.1 mg/dL (0.6-1.3); MAGNESIUM - SERUM 2.5 mg/dL (1.8-2.4); POTASSIUM - SERUM 4.5 mmol/L (3.5-5.1); PROTEIN - SERUM 6.5 g/dL (6.4-8.2)
[2019-05-19 06:24] LABS: PHOSPHOROUS 1.9 mg/dL (2.5-4.9)
--- NOTE | 2019-05-19 19:00 | NUR ---
REPORT RECEIVED. RECEIVED PATIENT IN BED. SEDATED/INTUBATED. 7.0 ETT INTACT/SECURE/PATENT CONNECTED TO MECHANICAL VENT AT ORDERED SETTINGS. CT INTACT/SECURE/PATENT DRAINING SMALL AMOUNT OF BLOODY DRAINAGE INTO COLLECTION CHAMBER CONNECTED TO 20 CM SUCTION WITH NO LEAK OBSERVED. ASSESSMENT COMPLETED PER FLOW SHEET WITH NO ACUTE DISTRESS OBSERVED. MONITORS CONNECTED TO PATIENT WITH ALARMS SET. VSS. WILL CONTINUE CURRENT POC. TURNED AND REPOSITIONED FOR COMFORT. ORAL CARE PERFORMED.
--- NOTE | 2019-05-19 20:00 | NUR ---
SPOKE WITH MICHA VIA TELEPHONE. UPDATED ON PATIENTS CONDITION. QUESTIONS ANSWERED.
--- NOTE | 2019-05-19 21:00 | NUR ---
TURNED AND REPOSITIONED. ORAL CARE GIVEN. HENRY WELL. VSS
--- NOTE | 2019-05-19 23:00 | NUR ---
REASSESSMENT COMPLETED PER FLOW SHEET WITH NO ACUTE DISTRESS OBSERVED. VSS. TURNED AND REPOSITIONED FOR COMFORT. HENRY WELL
[2019-05-20] VITALS (24 sets, daily range): BP systolic 98–117; BP diastolic 53–74
--- NOTE | 2019-05-20 01:00 | NUR ---
SEDATED/INTUBATED. VSS. TURNED AND REPOSITIONED FOR COMFORT. ORAL CARE GIVEN
--- NOTE | 2019-05-20 03:00 | NUR ---
REASSESSMENT COMPLETED PER FLOW SHEET WITH NO ACUTE DISTRESS OBSERVED. VSS. TURNED AND REPOSITIONED. ORAL CARE GIVE. HENRY WELL
--- NOTE | 2019-05-20 05:00 | NUR ---
TURNED AND REPOSITIONED. ORAL CARE GIVEN. HENRY WELL. VSS
[2019-05-20 06:36] LABS: ALBUMIN 2.4 g/dL (3.4-5.0); ALKALINE PHOSPHATASE 47 U/L (30-120); ALT (SGPT) 21 U/L (10-68); BILIRUBIN - TOTAL 0.61 mg/dL (0.2-1.3); CALC OSMOLALITY 280 mosm/kg (275-300); CALCIUM 7.9 mg/dL (8.5-10.1); CARBON DIOXIDE 29.4 mmol/L (21.0-32.0); CHLORIDE - SERUM 102 mmol/L (98-107); CREATININE - SERUM 0.9 mg/dL (0.6-1.3); GLUCOSE 156 mg/dL (74-106); MAGNESIUM - SERUM 2.7 mg/dL (1.8-2.4); POTASSIUM - SERUM 4.1 mmol/L (3.5-5.1); PROTEIN - SERUM 6.2 g/dL (6.4-8.2); SODIUM 138 mmol/L (136-145); UREA NITROGEN 18 mg/dL (7-18); eGFR NON AFRICAN AMERICAN > 90 mL/min (90-120)
[2019-05-20 06:45] LABS: BASOPHILS 0.3 % (0-2); EOSINOPHILS 1.8 % (0-7); HEMATOCRIT 43.4 % (42.0-54.0); HEMOGLOBIN 13.6 g/dL (13.5-17.5); IMMATURE GRANULOCYTES 0.3 % (0-5); LYMPHOCYTES 13.3 % (15-50); MCH 27.9 pg (26.0-34.0); MCHC 31.3 g/dL (31.0-37.0); MCV 88.9 fL (80.0-100.0); MEAN PLATELET VOLUME 11.2 fL (7.4-10.4); MONOCYTES 10.8 % (2-11); NEUTROPHILS 73.5 % (40-80); PLATELET COUNT 194 10x3/uL (130-400); RBC 4.88 10x6/uL (4.20-6.10); RDW 15.4 % (11.5-14.5); WBC 6.8 10x3/uL (4.8-10.8)
--- NOTE | 2019-05-20 07:50 | NUR ---
Nutrition follow-up: Pt remains intubated, sedated s/p CABG CT Labs reviewed Wt: 272# Recommend Pulmocare @ 25 ml/hr with gradual increase to goal rate of 70 ml/hr with 25 ml H2O flush q hour. Will wait for order from physician. RDN following.
--- NOTE | 2019-05-20 08:28 | NUR ---
0700 PT RECIEVED ALERT ABLE TO FOLLOW COMMANDS, VSS, NODS HEAD YES AND NO APPROPRIATLY, DENIES PAIN, CTX2, XANDER DRAIN COMPRESSED, JOSE DRAINING YELLOW URINE 0820 CALLED WITH SECURITY CODE FOR UPDATE, DENIES ALL NEEDS
--- NOTE | 2019-05-20 11:22 | OP ---
PATIENT NAME: TORY CLANCY MEDICAL RECORD: [id number] :61 LOCATION:[facility]CV[facility] ADMISSION DATE:05/16/19 SURGEON: STANFORD HEREDIA MD DATE OF OPERATION: 05/17/2019 SURGEON: Stanford Heredia MD PROCEDURE PERFORMED: Off pump coronary artery bypass graft times 1 (left internal mammary to LAD). PREOPERATIVE DIAGNOSES: Left anterior descending stenosis, acute coronary syndrome. POSTOPERATIVE DIAGNOSES: Left anterior descending stenosis, acute coronary syndrome, dilated cardiomyopathy. ANESTHESIA: General endotracheal anesthesia. ESTIMATED BLOOD LOSS: 300 cc with 150 cc Cell Saver. COMPLICATIONS: None. SPECIMENS: None. CONDITION: Stable. DISPOSITION: CV ICU. OPERATIVE FINDINGS: Transesophageal echocardiography confirmed left ventricular end-diastolic dimension greater than 6, the heart was a large fatty heart with some soldier's plaque. The LAD was not intramyocardial, but was on the surface of the heart, 2.5 mm vessel with severe disease. OPERATIVE INDICATION: LAD stenosis, not amenable to percutaneous intervention, moderate circumflex and right coronary stenosis deemed 60-70%, but in a large vessel appeared to be somewhat less and certainly nonocclusive with concern for competitive flow in case of bypass and were not bypassed. DESCRIPTION OF PROCEDURE: The patient was brought to the operating suite. General anesthesia was obtained. Median sternotomy incision was made. Subcutaneous tissue was divided by electrocautery. Sternum was divided. Left hemisternum was elevated. Left pleural cavity was entered. Lung was hyperinflated and 5mm visceral pleural opening was repaired with prolene and covered w Progel. Left internal mammary artery was taken dowm as a pedicle graft. The heparin was given. Sternal retractor was placed. Pericardium was opened. The internal mammary was clipped distally and made ready for anastomosis. An opening was made in the left pericardium. The heart was elevated. The inflow of the LAD was occluded. The vessel was stabilized using the off pump traction stabilization system and the vessel was opened, end-to-side anastomosis was performed in a standard technique. Flow was restored. Good Doppler signal was noted. The inflow occlusive tape was removed and bleeding from the anterior surface of the right ventricle was controlled with a pledgeted suture. Thorough irrigation was undertaken and the pedicle was tacked to the heart. Heart was returned to the anatomic position. Thorough irrigation was undertaken. Protamine was given. OPERATIVE REPORT [id number] TORY CLANCY The left chest was evacuated and irrigated. The internal mammary harvest site was inspected for bleeding. Sternum was closed with wires. Fascia was closed. Subcutaneous tissue was closed. Skin was closed. Dermabond was placed. The needle and sponge count was reported as correct. The patient was taken to ICU in stable condition. TRANSINT:[id number] Voice Confirmation ID: [id number] DOCUMENT ID: [id number] STANFORD HEREDIA MD at 1122 CC: ESTHER ARANA M.D. and ATIYA GUEVARA [id number] DICTATION DATE: 05/17/19 1109 CENTRIFUGE SEPARATOR OPERATOR: 05/17/19 1641 ADM IN [place] [id number] [place] [address]
--- NOTE | 2019-05-20 11:37 | TEE ---
PATIENT:TORY CLANCY MEDICAL RECORD: [id number] LOCATION:[place] [address] AGE OF PATIENT: 54 ADMISSION DATE: 05/16/19 SEX: M REFERRING PHYSICIAN: INTERPRETING PHYSICIAN: TORY CHU MD TRANSESOPHAGEAL ECHOCARDIOGRAM Date: 05/17/19 WHITNEY CHARGE Y INDICATIONS: CABG PREMEDICATIONS: PATIENT'S RESPONSE PROCEDURE DOPPLER MEASUREMENTS: LVIT LA 3.6 PA 103 RA LVOT 100 RVOT 65.0 Asc. Ao 143 AV Gradient Peak 8.2 AV Mean 4.6 AV Area 2.3 MV Gradient Peak 3.1 MV Mean 1.1 MV Area INTERPRETATION: Doppler: 2-D: COLOR FLOW DOPPLER NORMAL SALINE STUDY: MISCELLANOUS: DIAGNOSIS: PLAN: Animal Laboratory Technician:3 Dr. Barrera Airport Tower Controller: Adela RODRIGUEZ COMMENTS: DATE OF SERVICE: 05/17/2019 PROCEDURE: Intraoperative WHITNEY. FINDINGS: Preoperatively shows a normal LV wall motion and normal LV function. Aortic valve is tricuspid with good valve excursion. Left atrium is normal. Mitral valve appears normal. Postoperatively, the EF remains normal and no significant valve pathology. TRANSESOPHAGEAL ECHOCARDIOGRAM REPORT [id number] JULIETHTORY TRANSINT:[id number] Voice Confirmation ID: [id number] DOCUMENT ID: [id number] at 1137 CC: [id number] DICTATION DATE: 05/17/19 1250 POURING CRANE OPERATOR: 05/18/19 0248 ADM IN [facility] [address] [place] [address]
--- NOTE | 2019-05-20 16:42 | NUR ---
FSBS 134, INSULIN HELD PER PROTOCOL, RECHECKED AND STILL OUT OF RANGE, WILL RECHECK AND CONTINUE TO HOLD
--- NOTE | 2019-05-20 17:21 | NUR ---
PT REPOSITIONED Q2 HOURS, DENIES PAIN, ABLE TO POINT AND NOD YES AND NO TO MAKE NEEDS KNOWN, PT DENIES ALL NEEDS, SON AND CALLED THROUGHOUT DAY AND UPDATE PROVIDED, WILL CONTINUE TO MONITOR
--- NOTE | 2019-05-20 19:15 | NUR ---
PT RECEIVED SEDATED WITH RESTRAINTS. PT OPENS EYES TO VERBAL STIMULI, NODES HEAD TO YES NO QUESTIONS, ABLE TO COMMUNICATE BY WRITING ON PAPER. ORAL CARE PROVIDED. DENIES PAIN, VITAL SIGNS STABLE. PT REPOSITIONED. NO OTHER NEEDS OR CONCERNS NOTED. WILL CONTINUE TO OBSERVE.
--- NOTE | 2019-05-20 21:30 | NUR ---
PT CONTINUES SEDATION WITH RESTRAINTS, OPENS EYES SPONTANEOUSLY. FOLLOWS COMMANDS. NO S/S OF DISTRESS. DENIES PAIN. WILL CONTINUE TO OBSERVE.
--- NOTE | 2019-05-20 23:12 | NUR ---
PT WITH EYES CLOSED, SEDATED. NO S/S OF DISTRESS. WILL CONTINUE TO OBSERVE.
[2019-05-21] VITALS (24 sets, daily range): BP systolic 93–162; BP diastolic 47–97
--- NOTE | 2019-05-21 01:45 | NUR ---
PT WITH EYES CLOSED, SEDATED ON VENT. NO S/S OF DISTRESS. NOTED. WILL CONTINUE TO OBSERVE.
[2019-05-21 04:45] LABS: BASOPHILS 0.3 % (0-2); EOSINOPHILS 3.5 % (0-7); HEMATOCRIT 42.7 % (42.0-54.0); HEMOGLOBIN 13.4 g/dL (13.5-17.5); IMMATURE GRANULOCYTES 0.5 % (0-5); LYMPHOCYTES 16.1 % (15-50); MCH 27.6 pg (26.0-34.0); MCHC 31.4 g/dL (31.0-37.0); MEAN PLATELET VOLUME 11.3 fL (7.4-10.4); MONOCYTES 10.2 % (2-11); NEUTROPHILS 69.4 % (40-80); PLATELET COUNT 223 10x3/uL (130-400); RBC 4.85 10x6/uL (4.20-6.10)
[2019-05-21 05:12] LABS: ALBUMIN 2.3 g/dL (3.4-5.0); ALKALINE PHOSPHATASE 46 U/L (30-120); ALT (SGPT) 19 U/L (10-68); BILIRUBIN - TOTAL 0.63 mg/dL (0.2-1.3); CALC OSMOLALITY 276 mosm/kg (275-300); CALCIUM 7.8 mg/dL (8.5-10.1); CHLORIDE - SERUM 101 mmol/L (98-107); CREATININE - SERUM 0.7 mg/dL (0.6-1.3); GLUCOSE 162 mg/dL (74-106); MAGNESIUM - SERUM 2.4 mg/dL (1.8-2.4); PHOSPHOROUS 2.2 mg/dL (2.5-4.9); POTASSIUM - SERUM 4.1 mmol/L (3.5-5.1); PROTEIN - SERUM 6.2 g/dL (6.4-8.2); SODIUM 136 mmol/L (136-145); UREA NITROGEN 16 mg/dL (7-18); eGFR NON AFRICAN AMERICAN > 90 mL/min (90-120)
--- NOTE | 2019-05-21 05:12 | NUR ---
PT RECEIVED BATH WITH COMPLETE LINEN CHANGE, DRESSING TO SUBSTERNAL CHANGED. PT TOLERATED WELL. WILL CONTINUE TO OBSERVE.
--- NOTE | 2019-05-21 08:58 | NUR ---
0700 PT RECIEVED SEDATED, AWAKENS AND FOLLOWS COMMANDS EASILY, R IJ CVL DRESSING CDI, MIDSTERNAL AND SUBSTERNAL DRESSINGS CDI, SUBSTERNAL DRESSING CHANGED BY PREVIOUS SHIFT, CT 20CM SUCTION X2 XANDER DRAIN COMPRESSED, TPM WIRE COILED, JOSE DRAINING YELLOW URINE, TEDS/SCDS IN PLACE 0800 SON CALLED FOR UPDATE DR HEREDIA INMINOR ORDERED RT TO CHANGE TO PEEP 8 0850 REPOSITIONED
--- NOTE | 2019-05-21 11:27 | NUR ---
SEDATION TURNED OFF AND PT TURNED TO SPONTANOUS BY RT PER DR HEREDIA
--- NOTE | 2019-05-21 14:15 | NUR ---
ABGS CALLED TO DR MOYA ORDERS TO EXTUBATE, NOTIFIED DR HEREDIA, EXTUBATED AT 1404 AND RESTRAINTS REMOVED, EDUCATED TRAVEL INSURANCE AGENT LIGHT AND ORAL SUCTION
--- NOTE | 2019-05-21 16:22 | NUR ---
PT EDUCATED ON SPLINTING FOR COUGHS WITH PILLOW, IS AND FLUTTER, PULLS 500X10 BREATHES ON IS, ABLE TO SUCTION SELF, CELLPHONE WITHIN REACH AND FACETIMING WITH FAMILY, ASSISTED TO DANGLE ON SIDE OF BED PER DR HEREDIA, SPOKE WITH DR HEREDIA, ORDERS TO KEEP NPO AND HOLD PO MEDS, BUT TO START SLIDING SCALE INSULIN AND USE BP CUFF FOR PRESSURES BUT KEEP A LINE.
--- NOTE | 2019-05-21 16:33 | MORECARE ---
CASE MANAGEMENT DISCHARGE SUMMARY PATIENT: TORY CLANCY UNIT: [id number] ADM DATE: 05/16/19 AGE: 54 : 61 SEX: M [facility] AUTHOR: JULIA DICKEY PHYSICIAN: REFERRING PHYSICIAN: YANETH GRAHAM MD DATE OF SERVICE: 05/21/19 Discharge Plan Patient Name: TORY CLANCY [facility] [facility] 1965 Planned Disposition: Anticipated Discharge Date: Discharge Date: Expected LOS: Initial Reviewer: [email or web address] Initial Review Date: 05/15/2019 Generated: 05/21/19 5:33 pm Comments DCP- Discharge Planning Updated by [email or web address]: Lauren Sullivan on 05/21/19 3:[address] Late Entry 05/16/19 CM attempted to call patient's spouse Cary [phone] regarding discharge planning. CM wasn't able to speak to Cary it went to voice mail. CM will continue to follow and assist as needed with discharge planning /needs. 05/21/19 CM called spouse but she wasn't able to speak to CM at this time and will call back later. CM will continue to follow and assist as needed with discharge planning / needs. DCPIA - Discharge Planning Initial Assessment Updated by [email or web address]: Lauren Sullivan on 05/21/19 4:29 pm * Is the patient Alert and Oriented? No * How many steps to enter\exit or inside your home? Patient Name: TORY CLANCY Page [phone] at 1633 All edits/amendments must be made on the electronic document DICTATION DATE: 05/21/19 1633 SMOKING TOBACCO CUTTER OPERATOR: GLORIA 05/21/19 1633 RPT#: [id number] DC DATE: STATUS: ADM IN [facility] [address] [place] [address] END OF REPORT
--- NOTE | 2019-05-21 18:54 | NUR ---
DR HEREDIA NOTIFIED OF PTS BP TRENDING UP, ORDERS FOR LOPRESSOR NOW AND TO INCREASE SCHEDULED DOSE, OK TO USE NITRO IF NEEDED.
--- NOTE | 2019-05-21 19:37 | NUR ---
PT RECEIVED WITH EYES OPEN, WATCHING TV. DENIES PAIN. PT NPO. CALL LIGHT IN REACH. PT PULLED UP IN BED FOR COMFORT. WILL CONTINUE TO OBSERVE.
--- NOTE | 2019-05-21 21:36 | NUR ---
PT WITH EYES CLOSED AND CHEST RISING. NO S/S OF DISTRESS NOTED. EASILY AWOKEN TO VERBAL STIMULI. NO NEEDS OR CONCERNS NOTED AT THIS TIME. CALL LIGHT IN REACH. WILL CONTINUE TO OBSERVE.
--- NOTE | 2019-05-21 22:41 | NUR ---
PT ON BIPAP AT 2220, TOLERATING WELL AT THIS TIME. WILL CONTINUE TO OBSERVE.
[2019-05-22] VITALS (44 sets, daily range): BP systolic 108–150; BP diastolic 57–91
--- NOTE | 2019-05-22 01:23 | NUR ---
PT WITH EYES CLOSED AND CHEST RISING. NO S/S OF DISTRESS. CALL LIGHT IN REACH. WILL CONTINUE TO OBSERVE.
[2019-05-22 05:35] LABS: HEMATOCRIT 44.8 % (42.0-54.0); HEMOGLOBIN 14.2 g/dL (13.5-17.5); MCH 27.6 pg (26.0-34.0); MCHC 31.7 g/dL (31.0-37.0); MEAN PLATELET VOLUME 10.3 fL (7.4-10.4); RBC 5.15 10x6/uL (4.20-6.10); RDW 14.4 % (11.5-14.5); WBC 7.3 10x3/uL (4.8-10.8)
[2019-05-22 06:04] LABS: ALBUMIN 2.3 g/dL (3.4-5.0); ALKALINE PHOSPHATASE 52 U/L (30-120); ALT (SGPT) 21 U/L (10-68); CALC OSMOLALITY 279 mosm/kg (275-300); CALCIUM 8.3 mg/dL (8.5-10.1); CHLORIDE - SERUM 102 mmol/L (98-107); CREATININE - SERUM 0.7 mg/dL (0.6-1.3); GLUCOSE 183 mg/dL (74-106); POTASSIUM - SERUM 4.1 mmol/L (3.5-5.1); PROTEIN - SERUM 6.6 g/dL (6.4-8.2); SODIUM 137 mmol/L (136-145); UREA NITROGEN 16 mg/dL (7-18); eGFR NON AFRICAN AMERICAN > 90 mL/min (90-120)
--- NOTE | 2019-05-22 06:44 | NUR ---
PT GIVEN BATH AND DRESSING CHANGED. PT UPTO BEDSIDE CHAIR. TOLERATED WELL. CALL LIGHT IN REACH. WILL CONTINUE TO OBSERVE.
--- NOTE | 2019-05-22 07:20 | NUR ---
SHIFT REPORT RECEIVED. PT UP IN CHAIR. ALERT AND ORIENTED X4. ON 7L O2 VIA HIGH FLOW NC. HAS RIGHT IJ S.L. MIDSTERNAL INCISION WITH DRESSING C/D/I. SUBSTERNAL CT X 2 TO 20CM SUCTION. NO AIR LEAK NOTED. XANDER DRAIN IN PLACE. RIGHT RADIAL YESENIA SECURED IN PLACE WITH WRIST PROTECTOR. JOSE CATHETER IN PLACE WITH EDGARDO URINE NOTED. PT DENIES PAIN AT INCISION SITE AT THIS TIME. COMPLAINTS OF BUTTOM BEING SORE. ASSISTED PT TO STAND UP AND REPOSITION. TOLERATED WELL. THICK STEPHENS SPUTUM NOTED AT THIS TIME. ESTUARDO'S ON BILATERAL LEGS. SEE FLOW SHEET FOR COMPLETE ASSESSMENT. CALL LIGHT IN REACH. WILL CONTINUE TO MONITOR.
--- NOTE | 2019-05-22 07:45 | NUR ---
CALL RECEIVED FROM SPOUSE. PERMISSION RECEIVED FROM PT TO GIVE INFORMATION OVER PHONE. BRIEF UPDATE GIVEN.
--- NOTE | 2019-05-22 07:55 | NUR ---
ASSISTED PT TO LEAN FORWARD AND REPOSITION IN CHAIR. EXTRA PILLOW PROVIDED FOR COMFORT. PULLS 750 ON INCENTIVE SPIROMETER. WILL CONTINUE TO MONITOR.
--- NOTE | 2019-05-22 08:01 | NUR ---
CALL RECEIVED FROM KERON, PT'S SON. VERIFIED PT'S FULL NAME AND DATE OF . TOLD THAT PT WAS UP IN CHAIR AND WAS STABLE AT THIS TIME. WILL CALL BACK LATER TO CHECK ON WHAT SAYS.
--- NOTE | 2019-05-22 08:37 | NUR ---
RADHA RN WITH DR. HEREDIA IN UNIT. ADDRESS NPO STATUS WITH HER. OKAY TO GIVE FEW ICE CHIPS. SHE WILL CHECK WITH DR. HEREDIA ABOUT DIET.
--- NOTE | 2019-05-22 09:34 | NUR ---
STOOD UP FOR A FEW MINUTES AT THIS TIME. REPOSITIONED FOR COMFORT. CONTINUES IN CHAIR. NO FURTHER NEEDS AT THIS TIME. WILL CONTINUE TO MONITOR.
--- NOTE | 2019-05-22 11:03 | NUR ---
DR. HEREDIA NOTIFIED OF HR 116. ORDERED MORPHINE 2MG Q2HR PRN FOR PAIN. OKAY TO START CLEAR LIQUID DIET. WILL CONTINUE TO MONITOR.
--- NOTE | 2019-05-22 11:53 | NUR ---
HR 125 SINUS [address]CARDIC WITH PAC'S. DR. HEREDIA NOTIFIED. PT SITTING UP EATING LUNCH. NO NAUSEA OR DIFFICULTY SWALLOWING REPORTED AT THIS TIME. WILL CONTINUE TO MONITOR.
--- NOTE | 2019-05-22 13:00 | NUR ---
DR HEREDIA IN ROOM PREPARING TO PULL CHEST TUBES. CHEST TUBES PULLED. PT TOLERATED WELL. NO SIGNS OF DISTRESS NOTED. WILL CONTINUE TO MONITOR
--- NOTE | 2019-05-22 13:39 | NUR ---
Nutrition Follow-up: POD 5 CABG. S/p extubation yesterday. Advanced to clear liquids today. Nursing reports no nausea or difficulty swallowing. Wt: 265.6# (05/21); 272.7# (/); 275# (admit). Noted I/Os (-4419 mL on 05/20). Last BM: 05/14 per chart Labs noted: Glu 183, Ca 8.3, Alb 2.3 Meds noted: Humulin -Rec continue to ADAT to cardiac carb consistent as medically feasible. -Encourage PO intake and honor food preferences within diet restrictions. -Monitor wt. -RD following.
--- NOTE | 2019-05-22 15:40 | NUR ---
JOSE CATHETER DC'D AT THIS TIME PER ORDER. URINAL PROVIDED. ASSISTED PT UP TO SIDE OF BED. DENIES OTHER NEEDS AT THIS TIME. WILL CONTINUE TO MONITOR.
--- NOTE | 2019-05-22 16:50 | NUR ---
TRANSFERRED TO CHAIR. MEAL TRAY DELIVERED AND SET UP. PT ASKED FOR JELLO. NO FURTHER NEEDS AT THIS TIME. WILL CONTINUE TO MONITOR.
--- NOTE | 2019-05-22 19:01 | MORECARE ---
CASE MANAGEMENT DISCHARGE SUMMARY PATIENT: TORY CLANCY UNIT: [id number] ADM DATE: 05/16/19 AGE: 54 : 61 SEX: M [facility] AUTHOR: JULIA DICKEY PHYSICIAN: REFERRING PHYSICIAN: YANETH GRAHAM MD DATE OF SERVICE: 05/22/19 Discharge Plan Patient Name: TORY CLANCY [facility] [facility] 1965 Planned Disposition: Anticipated Discharge Date: Discharge Date: Expected LOS: Initial Reviewer: [email or web address] Initial Review Date: 05/15/2019 Generated: 05/22/19 8:00 pm Comments DCP- Discharge Planning Updated by [email or web address]: Lauren Sullivan on 05/22/19 5:[address] CM ATTEMPTED TO CALL SPOUSE TO GET D/C PLAN. NO ANSWER. CM WILL CONTINUE TO FOLLOW AND ASSIST NEEDED WITH DISCHARGE PLANNING / NEEDS. DCP- Discharge Planning Updated by [email or web address]: Lauren Sullivan on 05/21/19 3:[address] Late Entry 05/16/19 CM attempted to call patient's spouse Cary [phone] regarding discharge planning. CM wasn't able to speak to Cary it went to voice mail. CM will continue to follow and assist as needed with discharge planning /needs. 05/21/19 CM called spouse but she wasn't able to speak to CM at this time and will call back later. CM will continue to follow and assist as needed with discharge planning / needs. DCPIA - Discharge Planning Initial Assessment Updated by [email or web address]: Lauren Sullivan on 05/21/19 4:29 pm * Is the patient Alert and Oriented? No * How many steps to enter\exit or inside your home? Last DP export: 05/21/19 3:33 p Patient Name: TORY CLANCY Page [id number] at 1901 All edits/amendments must be made on the electronic document DICTATION DATE: 05/22/191899 FARMER TREE FRUIT AND NUT CROPS: GLORIA 05/22/191899 RPT#: [id number] DC DATE: STATUS: ADM IN [facility] [address] [place] [address] END OF REPORT
--- NOTE | 2019-05-22 19:45 | NUR ---
PT TRANSFERRED TO BED FROM CHAIR. MINIMAL ASSIST PROVIDED. POSITIONED FOR COMFORT. BATTERY TO TEMPORARY PACEMAKER CHANGED, DRESSING TO RIGHT IJ CHANGED PER PROTOCOL. NO OTHER NEEDS OR CONCERNS NOTED. CALL LIGHT IN REACH. WILL CONTNUE TO OBSERVE.
--- NOTE | 2019-05-22 21:29 | NUR ---
PT WITH EYES CLOSED AND CHEST RISING. COMPLAINS OF PAIN WITH PRN MEDICATION GIVEN WITH HS MEDICATION. ASSIST GIVEN FOR REPOSITIONING. NO OTHER NEEDS MADE KNOWN. CALL LIGHT IN REACH. WILL CONTINUE TO OBSERVE.
--- NOTE | 2019-05-22 23:10 | NUR ---
PT ON BIPAP. HR INCREASED TO 110-120. PT WITH EYES CLOSED AND CHEST RISING. CALL LIGHT IN REACH. WILL CONTINUE TO OBSERVE.
[2019-05-23] VITALS (24 sets, daily range): BP systolic 90–135; BP diastolic 51–99
--- NOTE | 2019-05-23 00:30 | NUR ---
DR HEREDIA CALLED AND REPORTED PT HR 120 TO 140 AND IN AFIB. RECEIVED ORDERS FOR AMIODARONE 150 BOLUS, THEN AT 1MG FOR 6HRS, THEN CHANGE TO 0.5MG. BOLUS WAS GIVEN AND 1MG STARTED. PT OFF BIPAP AND CHANGED TO HIGH FLOW N/C 6LPM. NO OTHER CONCERNS NOTED. WILL CONTINUE TO OBSERVE.
--- NOTE | 2019-05-23 02:16 | NUR ---
PT WITH EYES OPEN WATCHING TV REQUEST TO BE REPOSITIONED AND ASSIST GIVEN. COMPLAINS OF BACK PAIN WITH PRN GIVEN PER APR. CALL LIGHT IN REACH. WILL CONTINUE TO OBSERVE.
--- NOTE | 2019-05-23 04:50 | NUR ---
PT GIVEN BATH WITH COMPLETE LINEN CHANGE. DRESSING TO SUBSTERNAL CHANGED. TOLERATED WELL. CALL LIGHT IN REACH. WILL CONTINUE TO OBSERVE.
[2019-05-23 05:44] LABS: HEMATOCRIT 46.2 % (42.0-54.0); HEMOGLOBIN 14.5 g/dL (13.5-17.5); MCH 27.4 pg (26.0-34.0); MCHC 31.4 g/dL (31.0-37.0); MCV 87.3 fL (80.0-100.0); MEAN PLATELET VOLUME 10.4 fL (7.4-10.4); RBC 5.29 10x6/uL (4.20-6.10); RDW 14.5 % (11.5-14.5); WBC 8.1 10x3/uL (4.8-10.8)
[2019-05-23 06:11] LABS: ALBUMIN 2.2 g/dL (3.4-5.0); ALKALINE PHOSPHATASE 47 U/L (30-120); ALT (SGPT) 23 U/L (10-68); BILIRUBIN - TOTAL 0.79 mg/dL (0.2-1.3); CALCIUM 7.9 mg/dL (8.5-10.1); CARBON DIOXIDE 27.9 mmol/L (21.0-32.0); CHLORIDE - SERUM 99 mmol/L (98-107); MAGNESIUM - SERUM 1.8 mg/dL (1.8-2.4); PHOSPHOROUS 2.7 mg/dL (2.5-4.9); POTASSIUM - SERUM 3.7 mmol/L (3.5-5.1); SODIUM 133 mmol/L (136-145); UREA NITROGEN 19 mg/dL (7-18)
[2019-05-23 06:12] LABS: CALC OSMOLALITY 276 mosm/kg (275-300); CREATININE - SERUM 0.9 mg/dL (0.6-1.3); GLUCOSE 262 mg/dL (74-106); eGFR NON AFRICAN AMERICAN > 90 mL/min (90-120)
--- NOTE | 2019-05-23 07:00 | NUR ---
RECEIVED BESIDE REPORT ON PATIENT AND ASSUMED CARE. PATENT ALERT AND ORIENTED X 4, LAYING IN BED, CM - SR RATE OF 88, NO ECTOPY NOTED, BBS - CLEAR, DIMINISHED IN THE BASES, SPO2 - 95% ON 6LPM VIA HIGH FLOW NC. RIGHT IJ CVL IN PLACE INFUSING AMIODARONE AT 0.5 MG/HR (16.7 ML/HR), DRESSING C/D/I. MIDLINE DRESSING AND SUBSTERNAL DRESSIN C/D/I, XANDER DRAIN COMPRESSED, TPM WIRES PRESENT. PATIENT ASSISTED UP TO BEDSIDE CHAIR FROM BED WITH MINIMAL ASSISTANCE. VSS. HEAD TO TOE ASSSESSMENT COMPLETED.
--- NOTE | 2019-05-23 07:44 | NUR ---
PATIENT GIVEN BREAKFAST TRAY, VSS. NO NEEDS AT THIS TIME.
--- NOTE | 2019-05-23 08:32 | NUR ---
PATIENT UP TO BATHROOM WITH ASSIST, NO BM BUT IS PASSING GAS. TO XRAY FOR PA/LATERAL OF CHEST. VSS.
--- NOTE | 2019-05-23 08:51 | NUR ---
PATIENT BACK FROM XRAY. VSS.
--- NOTE | 2019-05-23 11:09 | NUR ---
REASSESSMENT COMPLETED. PATIENT UP IN BEDSIDE CHAIR, VSS.
--- NOTE | 2019-05-23 11:42 | NUR ---
PATIENT GIVEN LUNCH TRAY. NO NEEDS AT THIS TIME. VSS.
--- NOTE | 2019-05-23 15:07 | NUR ---
REASSESSMENT COMPLETED. VSS.
--- NOTE | 2019-05-23 16:28 | NUR ---
PATIENT GIVEN DINNER TRAY. VSS. NO NEEDS AT THIS TIME.
--- NOTE | 2019-05-23 16:58 | MORECARE ---
CASE MANAGEMENT DISCHARGE SUMMARY PATIENT: TORY CLANCY UNIT: [id number] ADM DATE: 05/16/19 AGE: 54 : 61 SEX: M [facility] AUTHOR: JULIA DICKEY PHYSICIAN: REFERRING PHYSICIAN: YANETH GRAHAM MD DATE OF SERVICE: 05/23/19 Discharge Plan Patient Name: TORY CLANCY [facility] [facility] 1965 Planned Disposition: Home Anticipated Discharge Date: Discharge Date: Expected LOS: Initial Reviewer: [email or web address] Initial Review Date: 05/15/2019 Generated: 05/23/19 5:58 pm DCP- Discharge Planning Updated by [email or web address]: Lauren Sullivan on 05/22/19 5:[address] CM ATTEMPTED TO CALL SPOUSE TO GET D/C PLAN. NO ANSWER. CM WILL CONTINUE TO FOLLOW AND ASSIST NEEDED WITH DISCHARGE PLANNING / NEEDS. DCP- Discharge Planning Updated by [email or web address]: Lauren Sullivan on 05/21/19 3:[address] Late Entry 05/16/19 CM attempted to call patient's spouse Cary [phone] regarding discharge planning. CM wasn't able to speak to Cary it went to voice mail. CM will continue to follow and assist as needed with discharge planning /needs. 05/21/19 CM called spouse but she wasn't able to speak to CM at this time and will call back later. CM will continue to follow and assist as needed with discharge planning / needs. DCPIA - Discharge Planning Initial Assessment Updated by [email or web address]: Lauren Sullivan on 05/21/19 4:29 pm * Is the patient Alert and Oriented? No * How many steps to enter\exit or inside your home? Last DP export: 05/22/19 6:01 pm Patient Name: TORY CLANCY Page 56909 at 4778 All edits/amendments must be made on the electronic document DICTATION DATE: 05/23/191657 FOLDER AND NOTCHER: GLORIA 05/23/191657 RPT#: [id number] DC DATE: STATUS: ADM IN [facility] [address] [place] [address] END OF REPORT
--- NOTE | 2019-05-23 17:12 | MORECARE ---
CASE MANAGEMENT DISCHARGE SUMMARY PATIENT: TORY CLANCY UNIT: [id number] ADM DATE: 05/16/19 AGE: 54 : 61 SEX: M [facility]ED: [facility] AUTHOR: KELI,DOC PHYSICIAN: REFERRING PHYSICIAN: YANETH GRAHAM MD DATE OF SERVICE: 05/23/19 Discharge Plan Patient Name: TORY CLANCY [facility]:[place] : 1965 Planned Disposition: Home Anticipated Discharge Date: Discharge Date: Expected LOS: Initial Reviewer: [email or web address] Initial Review Date: 05/15/2019 Generated: 05/23/19 6:11 pm Comments DCP- Discharge Planning Updated by [id number]: Lauren Sullivan on 05/23/19 4:[address] Patient Name: TORY CLANCY Admission Status: ER Accout number: [id number] Admission Date: 05-16-2019 : 1965 Admission Diagnosis:CHEST PAIN, UNSPECIFIED Attending: YANETH GRAHAM Current LOS: 7 Anticipated DC Date: Planned Disposition: Home Primary Insurance: [employer] PPO Discharge Planning Comments: CM met with patient to complete initial dc planning assessment. CM educated patient on the CM role and verbal consent given by patient to complete assessment. Patient lives at home with spouse. At discharge patient plans to return and feels this is a safe discharge. CM discussed availability of home health, rehab services, and medical equipment. Patient may need walk test upon discharge for home 02. LUISA for ArDam[facility] GARNETT. Patient denied known discharge needs at this time. CM will continue to follow and will assist as needed with dc plans/needs. Manager Coding: Lauren Sullivan DCP- Discharge Planning Updated by [email or web address]: Lauren Sullivan on 05/22/19 5:[address] CM ATTEMPTED TO CALL SPOUSE TO GET D/C PLAN. NO ANSWER. CM WILL CONTINUE TO FOLLOW AND ASSIST NEEDED WITH DISCHARGE PLANNING / NEEDS. DCP- Discharge Planning Updated by [email or web address]: Lauren Sullivan on 05/21/19 3:[address] Late Entry 05/16/19 CM attempted to call patient's spouse Cary [phone] regarding discharge planning. CM wasn't able to speak to Cary it went to voice mail. CM will continue to follow and assist as needed with discharge planning /needs. 05/21/19 CM called spouse but she wasn't able to speak to CM at this time and will call back later. CM will continue to follow and assist as needed with discharge planning / needs. DCPIA - Discharge Planning Initial Assessment Updated by [email or web address]: Lauren Sullivan on 05/23/19 5:05 pm * Is the patient Alert and Oriented? Yes * How many steps to enter\exit or inside your home? * PCP [facility] * Pharmacy [facility] * Preadmission Environment Home with Family * ADLs Independent * Equipment None * List name and contact numbers for known caregivers / representatives who currently or will assist patient after discharge: CARY CLANCY - SPOUSE- [phone] * Verbal permission to speak to the caregivers and representatives has been obtained from the patient. Yes * Community resources currently utilized None * Additional services required to return to the preadmission environment? No * Can the patient safely return to the preadmission environment? Yes * Has this patient been hospitalized within the prior 30 days at any hospital? No Last DP export: 05/23/19 3:58 pm Patient Name: TORY CLANCY Page 68959 at 1712 All edits/amendments must be made on the electronic document DICTATION DATE: 05/23/191710 TILE SETTER: GLORIA 05/23/191710 RPT#: [id number] DC DATE: STATUS: ADM IN [facility] [address] [place] [address] END OF REPORT
--- NOTE | 2019-05-23 23:00 | NUR ---
REASSESSMENT COMPLETE, NO ACUTE CHANGES FROM PRIOR ASSESSMENT, PT AAOx4, DENIES PAIN OR NEEDS AT THIS TIME, VSS, REPOSITIONED FOR COMFORT, CALL LIGHT IN REACH, LARGE CUP ICE WATER GIVEN PER REQUEST, WILL CONTINUE TO MONITOR
[2019-05-24] VITALS (24 sets, daily range): BP systolic 91–127; BP diastolic 49–86
--- NOTE | 2019-05-24 01:19 | NUR ---
PT ASSISTED TO BEDSIDE, PT USED URINAL TO VOID EDGARDO COLORED URINE, REPOSITIONED BACK IN BED FOR COMFORT, HOB ELEVATED, VSS, PT C/O INCISIONAL DISCOMFORT, PAIN MED GIVEN PER MAR/ORDERS, WILL CONTINUE TO MONITOR
--- NOTE | 2019-05-24 03:00 | NUR ---
REASSESSMENT COMPLETE PER FLOW SHEET, NO ACUTE CHANGES FROM PRIOR ASSESSMENT, PT AAOx4, DENIES PAIN OR NEEDS AT THIS TIME, VSS, REPOSITIONED FOR COMFORT, CALL LIGHT IN REACH, WILL CONTINUE TO MONITOR
--- NOTE | 2019-05-24 05:00 | NUR ---
PT OOB TO BEDSIDE TOILET, VOID NOTED, PT AMBULATED BACK TO BED, CHG BATH COMPLETED, COMPLETE LINEN AND GOWJN CHANGE, PT TOLLERATED WELL, ALL VSS, WILL CONTINUE TO MONITOR
[2019-05-24 06:26] LABS: HEMATOCRIT 44.9 % (42.0-54.0); HEMOGLOBIN 14.2 g/dL (13.5-17.5); MCH 27.4 pg (26.0-34.0); MCHC 31.6 g/dL (31.0-37.0); MCV 86.7 fL (80.0-100.0); MEAN PLATELET VOLUME 10.5 fL (7.4-10.4); RBC 5.18 10x6/uL (4.20-6.10); RDW 14.1 % (11.5-14.5); WBC 7.8 10x3/uL (4.8-10.8)
[2019-05-24 06:28] LABS: ALBUMIN 2.4 g/dL (3.4-5.0); ALKALINE PHOSPHATASE 51 U/L (30-120); ALT (SGPT) 28 U/L (10-68); BILIRUBIN - TOTAL 0.85 mg/dL (0.2-1.3); CALC OSMOLALITY 274 mosm/kg (275-300); CALCIUM 8.2 mg/dL (8.5-10.1); CARBON DIOXIDE 30.9 mmol/L (21.0-32.0); CHLORIDE - SERUM 99 mmol/L (98-107); CREATININE - SERUM 0.8 mg/dL (0.6-1.3); GLUCOSE 221 mg/dL (74-106); POTASSIUM - SERUM 3.6 mmol/L (3.5-5.1); PROTEIN - SERUM 6.3 g/dL (6.4-8.2); SODIUM 133 mmol/L (136-145); UREA NITROGEN 17 mg/dL (7-18); eGFR NON AFRICAN AMERICAN > 90 mL/min (90-120)
--- NOTE | 2019-05-24 07:00 | NUR ---
RECEIVED BEDSIDE REPORT AND ASSUMED CARE OF PATIENT. PATIENT ALERT AND ORIENTED X 4, SITTING UP IN BEDSIDE CHAIR. VSS. BBS - CLEAR AND EQUAL, DIMINISHED IN THE BASES, SPO2 - 95% ON HIGH FLOW NC AT 4 LPM. CM - SR RATE OF 78, NO ECTOPY NOTED. CVL RIGHT IJ, NSL, DRESSING C/D/I, FLUSHES EASILY WITH POSITIVE BLOOD RETURN NOTED. MIDLINE AND SUBSTERNAL DRESSINGS C/D/I, WITH XANDER DRAIN, BULB COMPRESSED. HEAD TO TOE ASSESSMENT COMPLETED.
--- NOTE | 2019-05-24 08:45 | NUR ---
SPO2 AT 96% ON 4 LPM VIA NC, O2 DECREASED TO 3 LPM.
--- NOTE | 2019-05-24 09:00 | NUR ---
PATIENT WALKED 250 FT WITH PT TOLERATERD WELL, VSS.
--- NOTE | 2019-05-24 10:10 | NUR ---
PATIENT ASSISTED BACK TO BED, DR. HEREDIA AT ROOM UPDATED AND EXAMINES PATIENT, TO REMOVE XANDER DRAIN. XANDER DRAIN REMOVED AND IODINE OINTMENT APPLIED DRESSED WITH 4X4 AND TEGADERM. VSS.
--- NOTE | 2019-05-24 10:54 | NUR ---
CVL TO RIGHT IJ DISCONTINUED PER ORDER, DIRECT PRESSURE HELD FOR APPROXIMATELY 2 MINUTES, CLEANED WITH BETADINE, DRESSED WITH 2X2 AND TEGADERM DRESSING. NO HEMATOMA OR BLEEDING NOTED. VSS.
--- NOTE | 2019-05-24 11:04 | NUR ---
PATIENT REASSESSMENT COMPLETED. VSS.
--- NOTE | 2019-05-24 12:09 | NUR ---
Nutrition Follow-up: POD 7 CABG. Eating well; 100% this AM. Diet: Diabetic PO intake: 89% avg x 4 meals Wt: 268# (05/23); 265.6# (05/21); 275# (05/14) Last BM: 05/14 per chart Labs noted: Na 133, Glu 221, Ca 8.2, Alb 2.4 Meds noted: Humulin, Protonix, Colace -Continue current diet as tolerated. -Monitor wt. -RD following.
--- NOTE | 2019-05-24 12:15 | NUR ---
PATIENT SITTING UP IN BEDSIDE CHAIR, EATING LUNCH NO NEEDS AT THIS TIME. VSS.
[2019-05-24] MEDS ORDERED: AMIODARONE HCL200 MG PO (13:15)
[2019-05-24] MEDS ORDERED: LOPRESSOR25 MG PO (13:16)
--- NOTE | 2019-05-24 14:57 | NUR ---
REASSESSMENT COMPLETED. VSS. PATIENT SPO2 - 96-97% ON 2 LPM O2 VIA NC, REMOVED AND PLACED ON RA WITH SPO2 93-95%.
--- NOTE | 2019-05-24 19:00 | NUR ---
REPORT RECEIVED. RECEIVED PATIENT UP IN CHAIR. AWAKE AND ALERT. ASSESSMENT COMPLETED PER FLOW SHEET WITH NO ACUTE DISTRESS OBSERVED. MONITORS CONNECTED TO PATIENT WITH ALARMS SET. VSS. CALL LIGHT WITH IN EASY REACH AND ABLE TO UTILIZE TO MAKE NEEDS KNOWN.
--- NOTE | 2019-05-24 20:17 | MORECARE ---
CASE MANAGEMENT DISCHARGE SUMMARY PATIENT: TORY CLANCY UNIT: [id number] ADM DATE: 05/16/19 AGE: 54 : 61 SEX: M [facility] AUTHOR: KELI,DOC PHYSICIAN: REFERRING PHYSICIAN: YANETH GRAHAM MD DATE OF SERVICE: 05/24/19 Discharge Plan Patient Name: TORY CLANCY Facility: [facility]:[place] : 1965 Planned Disposition: Home Anticipated Discharge Date: Discharge Date: Expected LOS: Initial Reviewer: [email or web address] Initial Review Date: 05/15/2019 Generated: 05/24/19 9:17 pm Comments DCP- Discharge Planning Updated by [email or web address]: Lauren Sullivan on 05/24/19 7:[address] patient will need walk test within 48 hrs of discharge if 02 is required at discharge. CM will continue to follow and assist as needed with discharge planning / needs. DCP- Discharge Planning Updated by [email or web address]: Lauren Sullivan on 05/23/19 4:[address] Patient Name: TORY CLANCY Admission Status: ER Accout number: [id number] Admission Date: 05-16-2019 : 1965 Admission Diagnosis:CHEST PAIN, UNSPECIFIED Attending: YANETH GRAHAM Current LOS: 7 Anticipated DC Date: Planned Disposition: Home Primary Insurance: [employer] PPO Discharge Planning Comments: CM met with patient to complete initial dc planning assessment. CM educated patient on the CM role and verbal consent given by patient to complete assessment. Patient lives at home with spouse. At discharge patient plans to return and feels this is a safe discharge. CM discussed availability of home health, rehab services, and medical equipment. Patient may need walk test upon discharge for home 02. LUISA for [facility]. Patient denied known discharge needs at this time. CM will continue to follow and will assist as needed with dc plans/needs. Mine Manager: Lauren Sullivan DCP- Discharge Planning Updated by [email or web address]: Lauren Sullivan on 05/22/19 5:[address] CM ATTEMPTED TO CALL SPOUSE TO GET D/C PLAN. NO ANSWER. CM WILL CONTINUE TO FOLLOW AND ASSIST NEEDED WITH DISCHARGE PLANNING / NEEDS. DCP- Discharge Planning Updated by [id number]: Lauren Lower on 05/21/19 3:[address] Late Entry 05/16/19 CM attempted to call patient's spouse Cary [phone] regarding discharge planning. CM wasn't able to speak to Cary it went to voice mail. CM will continue to follow and assist as needed with discharge planning /needs. 05/21/19 CM called spouse but she wasn't able to speak to CM at this time and will call back later. CM will continue to follow and assist as needed with discharge planning / needs. DCPIA - Discharge Planning Initial Assessment Updated by [id number]: Lauren Lower on 05/23/19 5:05 pm * Is the patient Alert and Oriented? Yes * How many steps to enter\exit or inside your home? * PCP [facility] * Pharmacy [facility] * Preadmission Environment Home with Family * ADLs Independent * Equipment None * List name and contact numbers for known caregivers / representatives who currently or will assist patient after discharge: CARY CLANCY - SPOUSE- [phone] * Verbal permission to speak to the caregivers and representatives has been obtained from the patient. Yes * Community resources currently utilized None * Additional services required to return to the preadmission environment? No * Can the patient safely return to the preadmission environment? Yes * Has this patient been hospitalized within the prior 30 days at any hospital? No Last DP export: 05/23/19 4:12 pm Patient Name: TORY CLANCY Page [id number] at 2017 All edits/amendments must be made on the electronic document DICTATION DATE: 05/24/19 2017 BLACK ASH BURNER OPERATOR: GLORIA 05/24/19 2017 RPT#: [id number] DC DATE: STATUS: [facility]M [facility] [address] [place] [address] END OF REPORT
--- NOTE | 2019-05-24 21:00 | NUR ---
RESTING IN BED WITH EYES CLOSED, EASILY ROUSED AND ALERT. VSS
--- NOTE | 2019-05-24 23:00 | NUR ---
REASSESSMENT COMPLETED PER FLOW SHEET WITH NO ACUTE DISTRESS OBSERVED AT PRESENT. VSS. CALL LIGHT IN REACH.
[2019-05-25] VITALS (13 sets, daily range): BP systolic 91–116; BP diastolic 50–89
--- NOTE | 2019-05-25 03:00 | NUR ---
REASSESSMENT COMPLETED PER FLOW SHEET WITH NO ACUTE DISTRESS OBSERVED. VSS. CALL LIGHT IN REACH
--- NOTE | 2019-05-25 12:00 | NUR ---
1130- WALK TEST FOR HOME OXYGEN---SPO2 96% ON ROOM AIR, POST WALK 500 FEET, SPO2 DOWN TO 88%, PLACE ON 1L/M SPO2 INCREASED TO 95%
[2019-05-25] MEDS ORDERED: PERCOCET 5-3251 TAB PO (12:04)
--- NOTE | 2019-05-25 12:09 | MORECARE ---
CASE MANAGEMENT DISCHARGE SUMMARY PATIENT: TORY CLANCY UNIT: [id number] ADM DATE: 05/16/19 AGE: 54 : 61 SEX: M ROOM/BED: [facility] AUTHOR: KELI,DOC PHYSICIAN: REFERRING PHYSICIAN: AYNETH GRAHAM MD DATE OF SERVICE: 05/25/19 Discharge Plan Patient Name: TORY CLANCY Facility: [facility]:[place] : 1965 Planned Disposition: Home Anticipated Discharge Date: Discharge Date: Expected LOS: Initial Reviewer: [email or web address] Initial Review Date: 05/15/2019 Generated: 05/25/19 1:08 pm Comments DCP- Discharge Planning Updated by [email or web address]: Lauren Sullivan on 05/24/19 7:[address] patient will need walk test within 48 hrs of discharge if 02 is required at discharge. CM will continue to follow and assist as needed with discharge planning / needs. DCP- Discharge Planning Updated by [email or web address]: Lauren Sullivan on 05/23/19 4:[address] Patient Name: TORY CLANCY Admission Status: ER Accout number: [id number] Admission Date: 05-16-2019 : 1965 Admission Diagnosis:CHEST PAIN, UNSPECIFIED Attending: YANETH GRAHAM Current LOS: 7 Anticipated DC Date: Planned Disposition: Home Primary Insurance: [employer] PPO Discharge Planning Comments: CM met with patient to complete initial dc planning assessment. CM educated patient on the CM role and verbal consent given by patient to complete assessment. Patient lives at home with spouse. At discharge patient plans to return and feels this is a safe discharge. CM discussed availability of home health, rehab services, and medical equipment. Patient may need walk test upon discharge for home 02. LUISA for [facility]. Patient denied known discharge needs at this time. CM will continue to follow and will assist as needed with dc plans/needs. Rotary Dump Operator: Lauren Sullivan DCP- Discharge Planning Updated by [email or web address]: Lauren Sullivan on 05/22/19 5:[address] CM ATTEMPTED TO CALL SPOUSE TO GET D/C PLAN. NO ANSWER. CM WILL CONTINUE TO FOLLOW AND ASSIST NEEDED WITH DISCHARGE PLANNING / NEEDS. DCP- Discharge Planning Updated by [id number]: Lauren Sullivan on 05/21/19 3:[address] Late Entry 05/16/19 CM attempted to call patient's spouse Cary [phone] regarding discharge planning. CM wasn't able to speak to Cary it went to voice mail. CM will continue to follow and assist as needed with discharge planning /needs. 05/21/19 CM called spouse but she wasn't able to speak to CM at this time and will call back later. CM will continue to follow and assist as needed with discharge planning / needs. DCPIA - Discharge Planning Initial Assessment Updated by [email or web address]: Lauren Sullivan on 05/23/19 5:05 pm * Is the patient Alert and Oriented? Yes * How many steps to enter\exit or inside your home? * PCP [facility] * Pharmacy [facility] * Preadmission Environment Home with Family * ADLs Independent * Equipment None * List name and contact numbers for known caregivers / representatives who currently or will assist patient after discharge: CARY CLANCY - SPOUSE- [phone] * Verbal permission to speak to the caregivers and representatives has been obtained from the patient. Yes * Community resources currently utilized None * Additional services required to return to the preadmission environment? No * Can the patient safely return to the preadmission environment? Yes * Has this patient been hospitalized within the prior 30 days at any hospital? No External Providers [facility] Contact Date: Service Request Date: Service Type: Resolution: Reviewer: Comments: Last DP export: 05/24/19 7:17 pm Patient Name: TORY CLANCY Page [phone] at 1209 All edits/amendments must be made on the electronic document DICTATION DATE: 05/25/19 1208 CERTIFIED NURSING ASSISTANT: GLORIA 05/25/19 1208 RPT#: [id number] DC DATE: STATUS: ADM IN [facility] [address] [place] [address] END OF REPORT
[2019-05-25] MEDS ORDERED: ATROVENT 0.02%2.5 ML INH (12:32)
--- NOTE | 2019-05-25 14:30 | NUR ---
1355: MEDS REVIEWED AND DISCHARGE INSTRUCTIONS REVIEWED. SENT HOME WITH HAND WRITTEN SCRIPT FOR PAIN MEDS. OTHER MEDS CALLED IN TO [facility] ON [address]. 1420: DISCHARGED HOME. ESCORTED TO VEHICLE VIA WHEELCHAIR.
--- NOTE | 2019-05-26 10:13 | MORECARE ---
CASE MANAGEMENT DISCHARGE SUMMARY PATIENT: TORY CLANCY UNIT: [id number] ADM DATE: 05/16/19 AGE: 54 : 61 SEX: M [facility] AUTHOR: KELI,DOC PHYSICIAN: REFERRING PHYSICIAN: YANETH GRAHAM MD DATE OF SERVICE: 05/26/19 Discharge Plan Patient Name: TORY CLANCY Facility: [facility]:[place] : 1965 Planned Disposition: Home Anticipated Discharge Date: Discharge Date: 05/25/2019 Expected LOS: Initial Reviewer: [email or web address] Initial Review Date: 05/15/2019 Generated: 05/26/19 11:13 am Comments DCP- Discharge Planning Updated by [email or web address]: Lauren Sullivan on 05/24/19 7:[address] patient will need walk test within 48 hrs of discharge if 02 is required at discharge. CM will continue to follow and assist as needed with discharge planning / needs. DCP- Discharge Planning Updated by [email or web address]: Lauren Sullivan on 05/23/19 4:[address] Patient Name: TORY CLANCY Admission Status: ER Accout number: [id number] Admission Date: 05-16-2019 : 1965 Admission Diagnosis:CHEST PAIN, UNSPECIFIED Attending: YANETH GRAHAM Current LOS: 7 Anticipated DC Date: Planned Disposition: Home Primary Insurance: [employer] PPO Discharge Planning Comments: CM met with patient to complete initial dc planning assessment. CM educated patient on the CM role and verbal consent given by patient to complete assessment. Patient lives at home with spouse. At discharge patient plans to return and feels this is a safe discharge. CM discussed availability of home health, rehab services, and medical equipment. Patient may need walk test upon discharge for home 02. [facility] for [facility]. Patient denied known discharge needs at this time. CM will continue to follow and will assist as needed with dc plans/needs. Buffing Wheel Raker: Lauren Sullivan DCP- Discharge Planning Updated by [email or web address]: Lauren Sullivan on 05/22/19 5:[address] CM ATTEMPTED TO CALL SPOUSE TO GET D/C PLAN. NO ANSWER. CM WILL CONTINUE TO FOLLOW AND ASSIST NEEDED WITH DISCHARGE PLANNING / NEEDS. DCP- Discharge Planning Updated by [email or web address]: Lauren Sullivan on 05/21/19 3:[address] Late Entry 05/16/19 CM attempted to call patient's spouse Cary [phone] regarding discharge planning. CM wasn't able to speak to Cary it went to voice mail. CM will continue to follow and assist as needed with discharge planning /needs. 05/21/19 CM called spouse but she wasn't able to speak to CM at this time and will call back later. CM will continue to follow and assist as needed with discharge planning / needs. DCPIA - Discharge Planning Initial Assessment Updated by [email or web address]: Lauren Nate on 05/23/19 5:05 pm * Is the patient Alert and Oriented? Yes * How many steps to enter\exit or inside your home? * PCP [facility] * Pharmacy [facility] * Preadmission Environment Home with Family * ADLs Independent * Equipment None * List name and contact numbers for known caregivers / representatives who currently or will assist patient after discharge: CARY CLANCY - SPOUSE- [phone] * Verbal permission to speak to the caregivers and representatives has been obtained from the patient. Yes * Community resources currently utilized None * Additional services required to return to the preadmission environment? No * Can the patient safely return to the preadmission environment? Yes * Has this patient been hospitalized within the prior 30 days at any hospital? No Last DP export: 05/25/19 11:09 am Patient Name: TORY CLANCY Page [id number] at 1013 All edits/amendments must be made on the electronic document DICTATION DATE: 05/26/19 1013 MEDICAL RESIDENT: GLORIA 05/26/19 1013 RPT#: [id number] DC DATE:05/25/19 STATUS: DIS IN [facility] [address] [place] [address] END OF REPORT
--- NOTE | 2019-05-26 10:21 | MORECARE ---
CASE MANAGEMENT DISCHARGE SUMMARY PATIENT: TORY CLANCY UNIT: [id number] ADM DATE: 05/16/19 AGE: 54 : 61 SEX: M ROOM/BED: [facility] [place] [facility] AUTHOR: KELI,DOC PHYSICIAN: REFERRING PHYSICIAN: AYNETH GRAHAM MD DATE OF SERVICE: 05/26/19 Discharge Plan Patient Name: TORY CLANCY Facility: [facility]:[place] : 1965 Planned Disposition: Home Anticipated Discharge Date: Discharge Date: 05/25/2019 Expected LOS: Initial Reviewer: [email or web address] Initial Review Date: 05/15/2019 Generated: 05/26/19 11:21 am Comments DCP- Discharge Planning Updated by [email or web address]: Lauren Sullivan on 05/26/19 9:[address] LATE ENTRY 05/25/19 CM notified that walk test completed and patient does require 02. CM came and spoke with patient and he stated that [facility] doesn't take his insurance. LUISA signed for [facility]. CM notified Guido with [facility] and faxed records. Portable 02 delivered to room and home 02 and nebulizer delivered to his home. CM will continue to follow and assist as needed with discharge planning / needs. DCP- Discharge Planning Updated by [email or web address]: Lauren Sullivan on 05/24/19 7:[address] patient will need walk test within 48 hrs of discharge if 02 is required at discharge. CM will continue to follow and assist as needed with discharge planning / needs. DCP- Discharge Planning Updated by [email or web address]: Lauren Sullivan on 05/23/19 4:[address] Patient Name: TORY CLANCY Admission Status: ER Accout number: [id number] Admission Date: 05-16-2019 : 1965 Admission Diagnosis:CHEST PAIN, UNSPECIFIED Attending: YANETH GRAHAM Current LOS: 7 Anticipated DC Date: Planned Disposition: Home Primary Insurance: [employer] PPO Discharge Planning Comments: CM met with patient to complete initial dc planning assessment. CM educated patient on the CM role and verbal consent given by patient to complete assessment. Patient lives at home with spouse. At discharge patient plans to return and feels this is a safe discharge. CM discussed availability of home health, rehab services, and medical equipment. Patient may need walk test upon discharge for home 02. [facility]ISA for [facility]. Patient denied known discharge needs at this time. CM will continue to follow and will assist as needed with dc plans/needs. Hydropulper Operator: Lauren Sullivan DCP- Discharge Planning Updated by [email or web address]: Lauren Sullivan on 05/22/19 5:[address] CM ATTEMPTED TO CALL SPOUSE TO GET D/C PLAN. NO ANSWER. CM WILL CONTINUE TO FOLLOW AND ASSIST NEEDED WITH DISCHARGE PLANNING / NEEDS. DCP- Discharge Planning Updated by [id number]: Lauren Sullivan on 05/21/19 3:[address] Late Entry 05/16/19 CM attempted to call patient's spouse Cary [phone] regarding discharge planning. CM wasn't able to speak to Cary it went to voice mail. CM will continue to follow and assist as needed with discharge planning /needs. 05/21/19 CM called spouse but she wasn't able to speak to CM at this time and will call back later. CM will continue to follow and assist as needed with discharge planning / needs. DCPIA - Discharge Planning Initial Assessment Updated by [email or web address]: Lauren Sullivan on 05/23/19 5:05 pm * Is the patient Alert and Oriented? Yes * How many steps to enter\exit or inside your home? * PCP [facility] * Pharmacy [facility] * Preadmission Environment Home with Family * ADLs Independent * Equipment None * List name and contact numbers for known caregivers / representatives who currently or will assist patient after discharge: CARY CLANCY - SPOUSE- [phone] * Verbal permission to speak to the caregivers and representatives has been obtained from the patient. Yes * Community resources currently utilized None * Additional services required to return to the preadmission environment? No * Can the patient safely return to the preadmission environment? Yes * Has this patient been hospitalized within the prior 30 days at any hospital? No Last DP export: 05/26/19 9:13 am Patient Name: TORY CLANCY Page [phone] at 1021 All edits/amendments must be made on the electronic document DICTATION DATE: 05/26/19 1021 INSTALLATION AND REPAIR TECHNICIAN: GLORIA 05/26/19 1021 RPT#: [id number] DC DATE:05/25/19 STATUS: DIS IN [facility] [address] [place] [address] END OF REPORT
== END 2019-05-25 14:20 | disposition home or self-care (01) | DRG 233 ==
LOC: D.ER 11:12 → D.M2 13:46 → OBSVTIME 14:48 → D.SDCHOLD 14:57 → D.M2 14:57 → D.CVICU 05-16 16:01 → D.M2 05-16 16:01 → D.CVICU 05-17 09:44
PROVIDERS: Emergency Medicine; Internal Medicine Cardiovascular Disease; Thoracic Surgery (Cardiothoracic Vascular Surgery); ADMIT Internal Medicine Nephrology; ATTEND Internal Medicine Nephrology
PROC: B2151ZZ Fluoroscopy of Left Heart using Low Osmolar Contrast (ICD-10-PCS; 2019-05-16)
PROC: 4A023N7 Measurement of Cardiac Sampling and Pressure, Left Heart, Percutaneous Approach (ICD-10-PCS; 2019-05-16)
PROC: B2111ZZ Fluoroscopy of Multiple Coronary Arteries using Low Osmolar Contrast (ICD-10-PCS; principal; 2019-05-16 09:30)
PROC: 02100Z9 Bypass Coronary Artery, One Artery from Left Internal Mammary, Open Approach (ICD-10-PCS; 2019-05-17)
PROC: B245ZZ4 Ultrasonography of Left Heart, Transesophageal (ICD-10-PCS; 2019-05-17)
PROC: 5A1955Z Respiratory Ventilation, Greater than 96 Consecutive Hours (ICD-10-PCS; 2019-05-17)
DX: I21.4 Non-ST elevation (NSTEMI) myocardial infarction (principal); J18.9 Pneumonia, unspecified organism; I42.0 Dilated cardiomyopathy; E87.1 Hypo-osmolality and hyponatremia; J98.11 Atelectasis; E11.40 Type 2 diabetes mellitus with diabetic neuropathy, unspecified; D75.1 Secondary polycythemia; I10 Essential (primary) hypertension; I25.10 Atherosclerotic heart disease of native coronary artery without angina pectoris; E78.5 Hyperlipidemia, unspecified; J40 Bronchitis, not specified as acute or chronic; D64.9 Anemia, unspecified; R53.81 Other malaise; R00.0 Tachycardia, unspecified

== ENCOUNTER → 2019-07-30 14:17 | Outpatient (CLI) | payer OTHER ==
[2019-05-17 12:00] VITALS: BMI 38.3
[~2019-07-30 14:17] MED LIST: AMIODARONE HCL200 MG PO; ATROVENT 0.02%2.5 ML INH; BACTRIM 400-801 TAB PO; CLARITIN 10 MG10 MG PO; HCTZ25 MG PO; JARDIANCE10 MG PO; K-DUR20 MEQ PO; LISINOPRIL20 MG PO; LOPRESSOR25 MG PO; LOVASTATIN20 MG PO; MAG-OXIDE400 MG PO; MOBIC7.5 MG PO; NEURONTIN600 MG PO; OMEGA-3100 MG PO; PERCOCET 5-3251 TAB PO; ROPINIROLE HCL1 MG PO; ZANAFLEX4 MG PO
== END | disposition home or self-care (01) ==
LOC: D.RAD 14:17
PROVIDERS: ATTEND Internal Medicine Pulmonary Disease
DX: R06.09 Other forms of dyspnea (principal)

== ENCOUNTER → 2019-08-13 08:24 | Outpatient (CLI) | payer OTHER ==
[2019-05-17 12:00] VITALS: BMI 38.3
== END | disposition home or self-care (01) ==
LOC: D.MRI 08:24
PROVIDERS: ATTEND Psychiatry & Neurology Neurology
DX: M54.12 Radiculopathy, cervical region (principal)

== ENCOUNTER → 2019-09-09 18:01 | Outpatient (CLI) | payer OTHER ==
[2019-05-17 12:00] VITALS: BMI 38.3
== END | disposition home or self-care (01) ==
LOC: D.LAB 18:01
PROVIDERS: ATTEND Internal Medicine Pulmonary Disease
DX: Z11.59 Encounter for screening for other viral diseases (principal)

== ENCOUNTER → 2019-09-12 09:24 | Outpatient (CLI) | payer OTHER ==
[2019-05-17 12:00] VITALS: BMI 38.3
== END | disposition home or self-care (01) ==
LOC: D.RT 09:24
PROVIDERS: ATTEND Internal Medicine Pulmonary Disease
DX: R06.09 Other forms of dyspnea (principal); Z11.59 Encounter for screening for other viral diseases

== ENCOUNTER → 2020-06-12 16:46 | Outpatient (CLI) | payer OTHER ==
[2019-05-17 12:00] VITALS: BMI 38.3
== END | disposition home or self-care (01) ==
LOC: D.LAB 16:46
PROVIDERS: ATTEND Internal Medicine Pulmonary Disease
DX: Z11.52 Encounter for screening for COVID-19 (principal); Z20.822 Contact with and (suspected) exposure to COVID-19

== ENCOUNTER → 2020-06-16 08:50 | Outpatient (CLI) | payer OTHER ==
[2019-05-17 12:00] VITALS: BMI 38.3
== END | disposition home or self-care (01) ==
LOC: D.RT 06-15 08:00
PROVIDERS: ATTEND Internal Medicine Pulmonary Disease
DX: Z20.822 Contact with and (suspected) exposure to COVID-19 (principal)